=== PATIENT | female | born 1945 | race Caucasian/White ===

== ENCOUNTER 2016-09-24 07:10 | Inpatient (IN) | payer OTHER, MEDICARE ==
[~2016-09-24] VITALS: Ht 165.1 cm; Wt 71.7 kg
[~2016-09-24 07:10] MED LIST: ASPIRIN EC325 MG PO; ASPIRIN81 M4 PO; CEFUROXIME AXE500 MG PO; CITALOPRAM HBR10 MG PO; CRESTOR10 M1 PO; DIOVAN160 MG PO; METOPROLOL SUCC50 MG PO; MULTIVITAMIN1 TAB PO; NEURONTIN100 M1 PO; OMEPRAZOLE20 MG PO; PREDNISONE 20MG20 MG PO; PROAIR HFA0.09 MG/Ac INH; PULMICORT0.5 MG/21 INH/SOL; RISPERDAL3 M1 PO; TYLENOL XSTR500 MG PO; TYLENOL325 M1 PO; VENTOLIN HFA18 GM INH; WARFARIN SODIUM2 MG PO
--- NOTE | 2016-09-24 07:18 | ED AMS/SEIZURE/WEAK/DIZZY ---
History of Present Illness General Chief Complaint: Altered Mental Status Stated Complaint: ALTERED MENTAL STATUS Source: family, old records, EMS Exam Limitations: unable to give history Vital Signs & Intake/Output Vital Signs & Intake/Output Vital Signs Date Time Temp Pulse Resp B/P Pulse O2 O2 Flow FiO2 Ox Delivery Rate 09/24 1001 98.6 57 18 151/67 98 Room Air 09/24 0722 90 Room Air 09/24 0715 96.9 59 18 139/63 91 Room Air Allergies Coded Allergies: Penicillins (RASH 09/17/16) Reconcile Medications Albuterol Sulfate (Ventolin Hfa) 90 MCG HFA.AER.AD 1 PUF INH BID COPD ( Reported) Aspirin (Aspirin*) 81 MG TAB.CHEW 1 TAB PO DAILY HEART HEALTH Budesonide (Pulmicort Flexhaler) 180 MCG AER.POW.BA 2 PUF INH BID COPD ( Reported) Citalopram Hydrobromide (Citalopram HBr) 10 MG TABLET 20 MG PO DAILY MENTAL HEALTH (Reported) Gabapentin (Neurontin) 100 MG CAPSULE 1 CAP PO BID ANXIETY/NERVE PAIN ( Reported) Risperidone (Risperdal) 3 MG TABLET 1 TAB PO AT BEDTIME SLEEP AIDE (Reported) Rosuvastatin Calcium (Crestor) 10 MG TABLET 1 TAB PO DAILY CHOLESTEROL ( Reported) Valsartan (Diovan) 160 MG TABLET 1 TAB PO DAILY BLOOD PRESSURE (Reported) Triage Nurses Notes Reviewed? yes Onset: Gradual Duration: week(s): (3) Timing: recent history Injury Environment: home Severity: severe No Modifying Factors: none Associated Symptoms: LEFT SIDED CEA ON Aug HPI: This is a 70-year-old female who presents via EMS from home accompanied by her brother for chief complaint of altered mental status. He states that she had a carotid endarterectomy done on the left side on September 11 and since then she has not been acting herself. She had 2 hospitalizations in the last week once here on and 2 days later at [place]. CAT scan here showed initially some bleeding but that was read read by neurologist who thought it was an incorrect reading was sent home. He states at home she is unable to talk like she normally does. She is unable to use her arms that she normally does and that doesn't understand commands. He is worried that she is taking her medications and correctly. He states prior to the carotid endarterectomy she had a history of stroke but only had a very slight speech impediment. No trauma or fall. He states that she has not been left alone since this is happening. The repeat CAT scan that was done at [facility] 2 days later did not show any evidence of bleeding. Past History Travel History Traveled to [place] past 21 day No Medical History Any Pertinent Medical History? see below for history Neurological: TIA,CVA BLURRY VISION, LEFT SIDED WEAKNESS BASELINE APHASIA EENT: NONE Cardiovascular: HTN, HDL L CAROTID STENOSIS WITH ENDARTERECTOMY Respiratory: COPD, CHRONIC BRONCHITIS Psychiatric: SCHIZOPHRNIA Cancer(s): BREAST BIOPSY History of MRSA: No History of VRE: No History of CDIFF: No Surgical History Surgical History: non-contributory Psychosocial History Who do you live with Family Services at Home None What is your primary language Urdu Tobacco Use: Current Daily Use ETOH Use: denies use Family History Hx Contributory? No Review of Systems Review of Systems Constitutional: Denies: chills, fever. EENTM: Reports: no symptoms. Respiratory: Denies: cough. Cardiovascular: Denies: chest pain. GI: Denies: diarrhea, vomiting. Genitourinary: Reports: no symptoms. Musculoskeletal: Reports: no symptoms. Skin: Reports: no symptoms. Neurological/Psychological: Reports: ataxia, confusion. Hematologic/Endocrine: Denies: bruising, bleeding. Immunologic/Allergic: Denies: splenectomy. All Other Systems: Reviewed and Negative Physical Exam Physical Exam General Appearance: well developed/nourished, alert, awake, anxious, mild distress Head: atraumatic, normal appearance Eyes: Bilateral: normal appearance, PERRL, EOMI. Neck: HEALING LEFT CEA SCAR Respiratory: normal breath sounds, chest non-tender, no respiratory distress Cardiovascular: regular rate/rhythm, normal peripheral pulses Peripheral Pulses: 2+ radial (R), 2+ radial (L) Gastrointestinal: normal bowel sounds, soft, non-tender Back: normal inspection Extremities: normal range of motion Neurologic/Psych: awake, alert Skin: intact, normal color, warm/dry Core Measures ACS in differential dx? No CVA/TIA Diagnosis: Yes NIH Stroke Scale: Total 3 Date Last Known Well: 09/02/16 Neurological S/S of CVA: Acute Confusion, Difficulty Speaking, Doesn't Walk, Slurred Speech Severe Sepsis Present: No Septic Shock Present: No Bedside Dysphagia Screen Bedside Swallow Eval Done: Yes Result of Evaluation: Pass Progress Differential Diagnosis: CVA/stroke, encephalitis, intracranial Hem., intracranial mass/tumor, seizure disorder, subarachnoid Hem. Plan of Care: Orders Procedure Date/time Status Admit to inpatient 09/24 947 Active Vital Signs 09/24 947 Active Code Status 09/24 947 Active Add-on Test (ER Only) 09/24 841 Active CULTURE,URINE 09/24 807 Active URINALYSIS 09/24 717 Complete TROPONIN LEVEL 09/24 717 Complete PARTIAL THROMBOPLASTIN TIME 09/24 717 Complete PROTHROMBIN TIME 09/24 717 Complete AMMONIA 09/24 717 Complete COMPREHENSIVE METABOLIC PANEL 09/24 717 Complete CBC WITHOUT DIFFERENTIAL 09/24 717 Complete EKG 09/24 717 Active Laboratory Tests 09/24/1610: PT 10.9, INR 1.04, APTT 29 09/24/16807: Urinalysis LIGHT H, Urine Color YEL, Urine Clarity HAZY H, Urine pH 6.0, Ur Specific [place] 1.020, Urine Protein NEG, Urine Ketones NEG, Urine Nitrite NEG, Urine Bilirubin NEG, Urine Urobilinogen 0.2, Ur Leukocyte Esterase SMALL H, Ur Microscopic SEDIMENT EXAMINED, Urine RBC RARE, Urine WBC 25-50 H, Ur Epithelial Cells MOD H, Urine Hemoglobin NEG, Urine Glucose NEG 09/24/16 0724: Anion Gap 9, Estimated GFR 34 L, BUN/Creatinine Ratio 14.0, Glucose 93, Calcium 9.7, Total Bilirubin 0.5, AST 19, ALT 25, Alkaline Phosphatase 60, Ammonia < 9 L, Troponin I < 0.01, Total Protein 6.7, Albumin 3.8, Globulin 2.9, Albumin/ Globulin Ratio 1.3, CBC w Diff NO MAN DIFF REQ, RBC 4.31, MCV 92.5, MCH 31.8 H, RDW 15.3 H, MPV 8.7, Gran % 65.5, Lymphocytes % 25.4, Monocytes % 7.1, Eosinophils % 1.6, Basophils % 0.4, Absolute Granulocytes 4.7, Absolute Lymphocytes 1.8, Absolute Monocytes 0.5, Absolute Eosinophils 0.1, Absolute Basophils 0, PUBS MCHC 34.4 Microbiology 09/24 807 URINE ROUT: Urine Culture - RECD EKG, TELE MONITOR, HEAD CT. LABS, COAGS ORDERED. (JENNY MOORE,NAE) Diagnostic Imaging: Viewed by Me: Radiology Read, CT Scan. Discussed w/RAD: Radiology Read, CT Scan. Radiology Impression: EXAM TYPE: CAT - CT HEAD WO IV CONTRAST EXAMINATION: CT HEAD WITHOUT CONTRAST CLINICAL INFORMATION: Acute mental status and confusion. Post recent infarct August 2016 COMPARISON: Previous head CT scans most recent 09/17/2016 TECHNIQUE: Contiguous axial imaging was performed from the skull base to vertex without intravenous administration of contrast. DLP: 529 mGy-cm. FINDINGS: There is no evidence of an extra-axial collection. There is no evidence of intra or extra-axial hemorrhage. There is an old large left frontal or MCA territory infarct. This is similar to previous exam. There is new decreased attenuation seen in the left posterior parietal lobe questionable for new infarct. This is best appreciated axial image 30-35 series 2 and measures 2 cm. The ventricles and extra-axial CSF spaces are appropriate. No mass or mass effect is seen. Review at bone windows is unremarkable. IMPRESSION: Large old left frontal infarct similar to previous exams. Question new left posterior parietal infarct. CXR Impression: EXAM TYPE: RAD - XRY-PORTABLE CHEST XRAY EXAMINATION: XR PORTABLE CHEST CLINICAL INFORMATION: Cough. Hypoxia. COMPARISON: Previous chest x-ray most recent August [address] March 2015 TECHNIQUE: AP portable chest FINDINGS: The cardiac and mediastinal contours are stable. The lungs are clear. There is no pleural effusion or pneumothorax. Visualized bony structures are unremarkable. IMPRESSION: No evidence for acute disease in the chest. Initial ED EKG: NSR Rhythm Strip: normal sinus rhythm Departure Departure Time of Disposition: 1044 Disposition: STILL A PATIENT Condition: Stable Clinical Impression Primary Impression: Altered mental status Referrals: GABRIELA CAMARILLO DO (PCP/Family) Referred to [facility] as new patient No Departure Forms: Customer Survey General Discharge Information Admission Note Spoke With: TERENCE CARTER M.D Documentation of Exam: Documentation of any treatments & extenuating circumstances including Concerns Regarding Discharge (functional status, medication knowledge or non-compliance, living conditions, etc.) that warrant an admission rather than observation: [ TELE MONITOR, NEURO CONSULT, NEURO CHECKS, MRI BRAIN,CAROTID U/S]
[2016-09-24 07:50] LABS: ABSOLUTE BASOPHIL COUNT 0 /CUMM (0.0-0.2); ABSOLUTE EOSINOPHIL COUNT 0.1 /CUMM (0.0-0.7); ABSOLUTE GRANULOCYTE CT 4.7 /CUMM (1.4-6.5); ABSOLUTE LYMPH COUNT 1.8 /CUMM (1.2-3.4); ABSOLUTE MONOCYTE COUNT 0.5 /CUMM (0.10-0.60); BASOPHIL % 0.4 % (0.0-2.0); EOSINOPHIL % 1.6 % (0-5); GRANULOCYTE % 65.5 % (42.2-75.2); HEMATOCRIT 39.9 % (37-47); MEAN CORPUSCULAR HGB 31.8 PG (27.0-31.0); MEAN CORPUSCULAR HGB CONC 34.4 G/DL (33.0-37.0); MEAN CORPUSCULAR VOLUME 92.5 FL (81.0-99.0); MEAN PLATELET VOLUME 8.7 FL (7.4-10.4); PLATELET COUNT 188 /CUMM (130-400); RBC DISTRIBUTION WIDTH 15.3 % (11.5-14.5); RED BLOOD CELL CT 4.31 /CUMM (4.20-5.40); WHITE BLOOD CELL COUNT 7.1 /CUMM (4.8-10.8)
--- NOTE | 2016-09-24 08:11 | RADIOLOGY REPORT ---
EXAMINATION: XR PORTABLE CHEST CLINICAL INFORMATION: Cough. Hypoxia. COMPARISON: Previous chest x-ray most recent August [address] March 2015 TECHNIQUE: AP portable chest FINDINGS: The cardiac and mediastinal contours are stable. The lungs are clear. There is no pleural effusion or pneumothorax. Visualized bony structures are unremarkable. IMPRESSION: No evidence for acute disease in the chest.
[2016-09-24 08:39] LABS: PT 10.9 SEC (9.4-12.5); PTT 29 SEC (25-37)
--- NOTE | 2016-09-24 08:50 | CT SCAN REPORT ---
EXAMINATION: CT HEAD WITHOUT CONTRAST CLINICAL INFORMATION: Acute mental status and confusion. Post recent infarct August 2016 COMPARISON: Previous head CT scans most recent 09/17/2016 TECHNIQUE: Contiguous axial imaging was performed from the skull base to vertex without intravenous administration of contrast. DLP: 529 mGy-cm. FINDINGS: There is no evidence of an extra-axial collection. There is no evidence of intra or extra-axial hemorrhage. There is an old large left frontal or MCA territory infarct. This is similar to previous exam. There is new decreased attenuation seen in the left posterior parietal lobe questionable for new infarct. This is best appreciated axial image 30-35 series 2 and measures 2 cm. The ventricles and extra-axial CSF spaces are appropriate. No mass or mass effect is seen. Review at bone windows is unremarkable. IMPRESSION: Large old left frontal infarct similar to previous exams. Question new left posterior parietal infarct.
--- NOTE | 2016-09-24 11:00 | History & Physical ---
See Addendum BROOK MOORE,RICARDA 09/24/16 1100: General Information and HPI History of Present Illness: Ana is a 71-year-old woman with medical history of TIA and left MCA territorial infarct with resultant right-sided weakness and aphasia, critical stenosis of left internal carotid artery status post left carotid endarterectomy with Hemashield patch angioplasty performed on 09/11/2016, hypertension dyslipidemia COPD and chronic bronchitis, schizophrenia. The patient was seen in the emergency room on 09/17/2016, approximately one week after endarterectomy with complaints of severe left-sided headache, a CAT scan of the head revealed a new trace left supratentorial subarachnoid hemorrhage without mass effect or midline shift and the old left MCA territory infarction. Dexter Bennett MD discussed the case with Dr. Andrew Steiner of the neurosurgical service at the time who didn't feel that the pattern of potential bleeding was consistent with aneurysmal bleed and there is no subarachnoid hemorrhage and at the patient was stable for discharge. Her headache improved with intravenous ketorolac. However, over the course of the next couple of days the patient continued to experience headaches and was reevaluated at [facility] where workup was repeated and again negative and she was discharged subsequently with pain medications. This morning her noticed that she was experiencing labored breathing, and woke her up. The patient endorsed dyspnea and recurrent headache at around 6 AM this morning was very incoherent, much more than baseline not oriented to self. The family feels that there has been a decline in her cognitive capacity since the surgery. At baseline she is pretty independent with activities daily living and walks independently. On further review, she admits to feeling short of breath but denies fevers chills chest pain nausea vomiting diarrhea dysuria frequency or any other symptoms after review in detail. In the emergency department, CAT scan of the head revealed a large old left frontal infarction, and suspicion of new left posterior parietal infarction. Allergies/Medications Allergies: Coded Allergies: Penicillins (RASH 09/17/16) Home Med list Albuterol Sulfate (Ventolin Hfa) 90 MCG HFA.AER.AD 1 PUF INH BID COPD ( Reported) Aspirin (Aspirin*) 81 MG TAB.CHEW 1 TAB PO DAILY HEART HEALTH Budesonide (Pulmicort Flexhaler) 180 MCG AER.POW.BA 2 PUF INH BID COPD ( Reported) Citalopram Hydrobromide (Citalopram HBr) 10 MG TABLET 20 MG PO DAILY MENTAL HEALTH (Reported) Gabapentin (Neurontin) 100 MG CAPSULE 1 CAP PO BID ANXIETY/NERVE PAIN ( Reported) Risperidone (Risperdal) 3 MG TABLET 1 TAB PO AT BEDTIME SLEEP AIDE (Reported) Rosuvastatin Calcium (Crestor) 10 MG TABLET 1 TAB PO DAILY CHOLESTEROL ( Reported) Valsartan (Diovan) 160 MG TABLET 1 TAB PO DAILY BLOOD PRESSURE (Reported) Past History Travel History Traveled to [place] past 21 day No Medical History Neurological: TIA,CVA BLURRY VISION, LEFT SIDED WEAKNESS BASELINE APHASIA EENT: NONE Cardiovascular: HTN, HDL L CAROTID STENOSIS WITH ENDARTERECTOMY Respiratory: COPD, CHRONIC BRONCHITIS Gastrointestinal: NONE Hepatic: NONE Renal: NONE Musculoskeletal: NONE Psychiatric: SCHIZOPHRNIA Endocrine: NONE Blood Disorders: NONE Cancer(s): BREAST BIOPSY [employer]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 Exam & Diagnostic Data Last 24 Hrs of Vital Signs/I&O Vital Signs Date Time Temp Pulse Resp B/P Pulse O2 O2 Flow FiO2 Ox Delivery Rate 09/24 1001 98.6 57 18 151/67 98 Room Air 09/24 0722 90 Room Air 09/24 0715 96.9 59 18 139/63 91 Room Air Intake & Output 09/24 1600 09/24 0800 09/24 0000 Intake Total Output Total Balance Patient 158 lb Weight Physical Exam General Appearance Alert, Oriented X3, Cooperative, No Acute Distress Skin No Rashes, No Breakdown, No Significant Lesion HEENT Atraumatic, PUPILS ARE SMALL BUT REACTIVE, R.PUPIL IS IRREGUALRLY SHAPED, LAZY EYE CHILD Neck Supple, No JVD, No thryomegaly, +2 Carotid Pulse wo Bruit, No LAD Lymphatic Cervical nl Cardiovascular Regular Rate, Normal S1, Normal S2, No Murmurs, Gallops, Rubs Lungs Clear to Auscultation, Normal Air Movement Abdomen Normal Bowel Sounds, Soft, No Tenderness, No Hepatospenomegaly, No Masses Neurological Normal Speech, Normal Tone, Sensation Intact, Cranial Nerves 3-12 NL, Reflexes 2+, STRENGTH 4/5 X 4 EXT, APHASIC, EQUIVOCAL BABINSKI, LIMITED EXAM BC OF PAIN FROM NEUROPATHY Extremities No Clubbing, No Cyanosis, No Edema, Normal Pulses, No Tenderness/ Swelling Vascular Normal Pulses Last 24 Hrs of Labs/Omero: Laboratory Tests 09/24/16 0810: PT 10.9, INR 1.04, APTT 29 09/24/16 0808: Urinalysis LIGHT H, Urine Color YEL, Urine Clarity HAZY H, Urine pH 6.0, Ur Specific [place] 1.020, Urine Protein NEG, Urine Ketones NEG, Urine Nitrite NEG, Urine Bilirubin NEG, Urine Urobilinogen 0.2, Ur Leukocyte Esterase SMALL H, Ur Microscopic SEDIMENT EXAMINED, Urine RBC RARE, Urine WBC 25-50 H, Ur Epithelial Cells MOD H, Urine Hemoglobin NEG, Urine Glucose NEG 09/24/16 0724: Anion Gap 9, Estimated GFR 34 L, BUN/Creatinine Ratio 14.0, Glucose 93, Calcium 9.7, Total Bilirubin 0.5, AST 19, ALT 25, Alkaline Phosphatase 60, Ammonia < 9 L, Troponin I < 0.01, Total Protein 6.7, Albumin 3.8, Globulin 2.9, Albumin/ Globulin Ratio 1.3, CBC w Diff NO MAN DIFF REQ, RBC 4.31, MCV 92.5, MCH 31.8 H, RDW 15.3 H, MPV 8.7, Gran % 65.5, Lymphocytes % 25.4, Monocytes % 7.1, Eosinophils % 1.6, Basophils % 0.4, Absolute Granulocytes 4.7, Absolute Lymphocytes 1.8, Absolute Monocytes 0.5, Absolute Eosinophils 0.1, Absolute Basophils 0, PUBS MCHC 34.4 Microbiology 09/24 807 URINE ROUT: Urine Culture - RECD Diagnostic Data EKG Results Sinus tachycardia with rate of 110, prolonged QTC of 590 CXR Results Clear Assessment/Plan Assessment: Ana is a 71-year-old woman with medical history of TIA and left MCA territorial infarct with resultant right-sided weakness and aphasia, critical stenosis of left internal carotid artery status post left carotid endarterectomy with Hemashield patch angioplasty performed on 09/11/2016, hypertension dyslipidemia COPD and chronic bronchitis, schizophrenia. This patient clearly has a new finding on CAT scan imaging, in the setting of altered mental status and recent endarterectomy for critical left ICA stenosis. Initially she was evaluated in the emergency department a few days ago for headache and CAT scan that time did show a subarachnoid hemorrhage without mass effect or midline shift. She is presently admitted, for a new CVA in the left posterior parietal area. In the emergency department she got a full dose of aspirin. She did pass a bedside swallow evaluation. She will be admitted to the telemetry floor, evaluated by neurology. - Problems - Acute left posterior parietal cerebrovascular accident Prolonged QTc interval Carotid artery disease status post left and carotid artery endarterectomy Dyslipidemia COPD Schizophrenia - Plan - Continuous cardiac monitoring on telemetry MRI brain when possible Frequent neuro checks every 2 hours GCS every 4 hours Check lipid panel, hemoglobin A1c Obtain carotid ultrasound, echocardiogram Obtain serial enzymes and EKG At 1 PM and 7 PM Await neurology and vascular surgery evaluation Avoid QT prolonging medications Continue statin Continue inhalers Continue risperidone DVT prophylaxis without Full code As Ranked By This Provider Problem List: 1. Altered mental status 2. Carotid stenosis 3. Headache Core Measures/Miscellaneous Acute Coronary Syndrome ACS Diagnosis: No Cerebrovascular Accident CVA/TIA Diagnosis: Yes Congestive Heart Failure CHF Diagnosis: No Venous Thromboembolism VTE Risk Factors: Age > 40 VTE Prophylaxis Ordered Inpt: Mechanical (ALPS/TEDS) No Mech VTE prophylaxis d/t: No contraindications No VTE Pharm Prophylaxis d/t: No contraindications VTE Diagnosis: No VTE Type: NONE VTE Confirmed by (Test): NONE Severe Sepsis Severe Sepsis Present: No Septic Shock Septic Shock Present: No Miscellaneous Documentation Attending Case Discussed With: EMERALD MOORE,ROQUE Coleman Primary Care Physician: GABRIELA CAMARILLO DO Patient sees these Specialists na Level of Patient Care: Telemetry TERENCE CARTER MD 09/24/16 1404: Attending Review Statement Attending Statement Attending MD Statement: examined this patient, discuss w/resident/PA/FUR VAULT ATTENDANT, agreed w/resident/PA/FUR VAULT ATTENDANT, reviewed EMR data (avail), discussed with nursing, discussed with case mgmt, amended to note Attending Assessment/Plan: Patient seen and examined. I did have an extensive conversation with her sister the bedside. Sister reports that patient had right knee show left hemispheric stroke about 12 years ago. She has had any dysphagia weakness since then. With physical therapy functional status has improved and she is able to live independently with her brother. She ambulates without assisted device. She tolerates a regular diet without difficulty swallowing. She is able to communicate in an understandable manner although her speech does remain slurred. At the time of the stroke 12 years ago she was noted to have left internal carotid artery stenosis. She was offered surgery at that time but declined. She has been following up with the vascular surgery service. A few weeks ago she developed headache and transient loss of vision leading to reevaluation of her ICA stenosis at which point it was noted to be critically stenosed. Surgery was again offered and at this time patient agreed. She underwent surgical repair as documented above. Postprocedure the patient's sister is of the impression that her brother whom she reports has some underlying psychiatric condition has been overtly concerned about the patient leading to the different ER visits documented above. He reports that today he woke up from sleep because he was concerned about her breathing. On waking up he encouraged her to take her tramadol which was prescribed for headaches. She appeared confused to him and she spilled the medication bottles with he gave to her at which point she was brought to the ER for evaluation. When I violated the patient and found her alert and oriented 3. Rule out speech is slurred. He is easily understood. Her only complaint is a mildly productive cough which the sister reports is chronic and due to her underlying COPD. She denies any chest pain or shortness of breath. She denies any dysphagia or odynophagia. Sister does admit that she snores heavily at night. Gen. appearance: Well-developed, not in acute distress HEENT: Mild left facial droop Neck: No carotid bruit bilaterally. Steri-Strip over incision on the left side of the neck. Heart: S1-S2 regular Lungs: Good entry bilaterally, clear to auscultation Abdomen: Soft, nontender with normal bowel sounds Extremities: No pedal edema Neurologic: She does have a mild left facial droop . Extraocular muscles intact. No pronator drift. Power is follow-up 5 all extremities. Sensation is grossly intact. Problems: 1. Labored breathing; sister reports this was while asleep. Patient denies any respiratory symptoms at present. 2. Probable new left posterior parietal infarct noted on CT scan. 3. History of stroke with baseline slurred speech. 4. Carotid artery stenosis status post left carotid endarterectomy. 5. Hypertension 6. Chronic kidney disease stage III 7. Non oxygen-dependent COPD. Plan: -If CT finding is indeed a stroke, differentials would include thromboembolic event from surgery versus cardioembolic event from atrial fibrillation. -Admit to the telemetry service for cardiac monitoring. Obtain echocardiogram. -Neuro watch every 4 hours. -Notify neurosurgery service of patient's admission. -Continue antiplatelet therapy with aspirin. Continue statin therapy but increase dose. Check fasting lipid panel. -Recommend MRI of the brain to clarify T scan findings. Follow-up with the neurology service and vascular service about also obtaining MRA of the head and neck to further delineate the vasculature unless obtained previously. -Continue her routine home antihypertensive regimen. Would avoid overtly aggressive blood pressure control. -Her chronic kidney disease appears close to baseline. Repeat serum chemistry tomorrow. -Continue her home bronchodilator regimen. -DVT prophylaxis with subcutaneous heparin.
[2016-09-24] MEDS ORDERED: PULMICORT FLE180 MC1 INH (11:47)
[2016-09-24 12:19] VITALS: BP 170/74
--- NOTE | 2016-09-24 14:05 | Admission Certification ---
Admission Certification Certification Statement - As attending physician, I certify that at the time of - admission, based on clinical presentation, severity of - symptoms, need for further diagnostic testing and - therapeutic interventions, and risk of adverse outcomes - without in-hospital treatment, in my clinical assessment, - this patient requires an acute hospital stay for a minimum - of two nights or longer. I have also considered psychsocial - factors such as support system, advanced age, financial - issues, cognitive issues, and failed out-patient treatments, - past re-admission history, safety of patient, and lack of - compliance as applicable. Specific rationale supporting this admission is: Further evaluation of acute or chronic stroke.
[2016-09-24 15:30] VITALS: BP 148/60
[2016-09-25 00:30] VITALS: BP 140/80
[2016-09-25 07:46] LABS: ABSOLUTE BASOPHIL COUNT 0 /CUMM (0.0-0.2); ABSOLUTE EOSINOPHIL COUNT 0.1 /CUMM (0.0-0.7); ABSOLUTE GRANULOCYTE CT 3.7 /CUMM (1.4-6.5); ABSOLUTE LYMPH COUNT 1.5 /CUMM (1.2-3.4); ABSOLUTE MONOCYTE COUNT 0.5 /CUMM (0.10-0.60); BASOPHIL % 0.5 % (0.0-2.0); EOSINOPHIL % 1.5 % (0-5); GRANULOCYTE % 64.2 % (42.2-75.2); HEMATOCRIT 38.1 % (37-47); MEAN CORPUSCULAR HGB 31.7 PG (27.0-31.0); MEAN CORPUSCULAR HGB CONC 34.3 G/DL (33.0-37.0); MEAN CORPUSCULAR VOLUME 92.5 FL (81.0-99.0); MEAN PLATELET VOLUME 8.1 FL (7.4-10.4); PLATELET COUNT 179 /CUMM (130-400); RBC DISTRIBUTION WIDTH 15.2 % (11.5-14.5); RED BLOOD CELL CT 4.12 /CUMM (4.20-5.40); WHITE BLOOD CELL COUNT 5.8 /CUMM (4.8-10.8)
[2016-09-25 08:29] VITALS: BP 158/67
--- NOTE | 2016-09-25 09:14 | PN- Housestaff ---
SEBASTIAN LEY 09/25/16 0914: Subjective Follow-up For: Acute left posterior periatrial cerebrovascular accident Tele-Events Since Last Visit: Sinus bradycardia, rate 42-50, [place] interval 0.18 Subjective: Patient seen and examined. Offers no complaints, denies chest pain, shortness of breath, headache, nausea, vomiting, abdominal pain. Review of Systems Constitutional: Denies: see HPI. Objective Last 24 Hrs of Vital Signs/I&O Vital Signs Date Time Temp Pulse Resp B/P Pulse O2 O2 Flow FiO2 Ox Delivery Rate 09/25 1549 97.9 50 17 156/70 96 Room Air 09/25 0829 97.6 57 20 158/67 98 Nasal 2.0L Cannula 09/25 0030 98.1 54 20 140/80 92 Nasal 2.0L Cannula 09/25 0000 95 Nasal 2.0L Cannula Intake & Output 09/25 1600 09/25 0800 09/25 0000 Intake Total 222 024 7609 Output Total 9126 854 8743 Balance -40 -100 -10 Intake, IV 400 400 Intake, Oral 960 100 840 Number 0 Bowel Movements Output, Urine 1073 956 3419 Physical Exam General Appearance: Alert, Cooperative, No Acute Distress Skin: No Rashes, No Breakdown, No Significant Lesion HEENT: Atraumatic, PERRLA, EOMI, Mucous Membr. moist/pink Neck: Supple, No JVD, No thryomegaly, +2 Carotid Pulse wo Bruit, No LAD, Steri- strips on Left side of neck intact Lymphatic: Axillary nl, Cervical nl Cardiovascular: Regular Rate, Normal S1, Normal S2, No Murmurs Lungs: Clear to Auscultation, Normal Air Movement Abdomen: Normal Bowel Sounds, Soft, No Tenderness, No Hepatospenomegaly, No Masses Neurological: Normal Tone, Sensation Intact, Cranial Nerves 3-12 NL, Reflexes 2+ , slow/slurred speech, strength 4/5 in all 4 extremities Extremities: No Clubbing, No Cyanosis, No Edema, Normal Pulses, No Tenderness/ Swelling Vascular: Pulses Symmetrical Current Medications: Current Medications Sig/Dalia Start time Last Medication Dose Route Stop Time Status Admin Acetaminophen 650 MG Q4P PRN 09/25 0900 AC 09/25 PO 1948 Acetaminophen 1,000 MG Q6P PRN 09/24 1115 DC 09/24 IV 1903 Albuterol Sulfate 1 PUF BID 09/24 2200 AC 09/25 INH 2101 Aspirin 81 MG DAILY 09/25 1000 AC 09/25 PO 0906 Atorvastatin Calcium 40 MG 1700 09/24 1700 AC 09/25 PO 1628 Budesonide/ 2 PUF BID 09/24 2200 AC 09/25 Formoterol Fumarate INH 2100 Citalopram 20 MG DAILY 09/24 1145 AC 09/25 Hydrobromide PO 0906 Dextrose/Sodium 1,000 ML Q20H 09/24 1115 AC 09/25 Chloride IV 1029 Diphenhydramine HCl 25 MG Q6P PRN 09/24 1115 AC IV Docusate Sodium 100 MG DAILY 09/25 1632 AC 09/25 PO 1948 Gabapentin 100 MG BID 09/24 1145 AC 09/25 PO 2101 Hydromorphone HCl 0.5 MG Q4P PRN 09/24 1115 AC 09/24 IV 2112 Nicotine 14 MG DAILY 09/24 1226 AC 09/25 TOP 0906 Risperidone 3 MG AT BEDTIME 09/24 2200 AC 09/25 PO 2101 Senna/Docusate Sodium 1 TAB BID 09/25 2200 AC 09/25 PO 1948 Trimethobenzamide HCl 200 MG TID PRN 09/24 1215 AC IM Last 24 Hrs of Lab/Omero Results Last 24 Hrs of Labs/Mics: Laboratory Tests 09/25/16 0635: Anion Gap 6, Estimated GFR 44 L, BUN/Creatinine Ratio 15.8, Magnesium 2.3, CBC w Diff NO MAN DIFF REQ, RBC 4.12 L, MCV 92.5, MCH 31.7 H, RDW 15.2 H, MPV 8.1 , Gran % 64.2, Lymphocytes % 25.6, Monocytes % 8.2, Eosinophils % 1.5, Basophils % 0.5, Absolute Granulocytes 3.7, Absolute Lymphocytes 1.5, Absolute Monocytes 0.5, Absolute Eosinophils 0.1, Absolute Basophils 0, PUBS MCHC 34.3 Assessment/Plan Assessment: This is a a 71-year-old 78 with medical history thickened for TIA and 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 Problem list/plan: #Acute left posterior periatrial cerebrovascular accident: * The patient has residual slurred speech and weakness from previous CVAs. * Continue telemetry * Neurology recommendations; especially regarding obtaining MRA of head and neck versus CT CTA * MRI of brain * Continue with aspirin, statin * Echocardiogram * CT angiogram was recommended by neurosurgery however deferred given renal insufficiency. * Formal swallow evaluation pending * Continue with PT/OT/speech therapy #Bradycardia * Patient noted to be bradycardic today heart rate ranging 42-50 * Asymptomatic * Not on any cee blocking agents * Continue with telemetry monitoring * Will appreciate cardiology recommendations #Chronic kidney disease stage III: * Creatinine improved from 1.5 to 1.2 * Avoid nephrotoxins * Monitor creatinine levels #History of COPD * TRC/nebulizers as needed #DVT prophylaxis * subcutaneous heparin #Full code Problem List: 1. Bradycardia 2. CVA (cerebral vascular accident) Pain Ratin Pain Location: NA Pain Goal: Remain pain free Pain Plan: When necessary Tylenol Tomorrow's Labs & Rationales: BEP to monitor electrolytes and creatinine levels TERENCE CARTER MD 09/25/16 1131: Attending MD Review Statement Attending Statement Attending MD Statement: examined this patient, discuss w/resident/PA/ASSOCIATE THEATRE PROFESSOR, agreed w/resident/PA/ASSOCIATE THEATRE PROFESSOR, reviewed EMR data (avail), discussed with nursing, amended to note Attending Assessment/Plan: Patient seen and examined. Lying comfortably in bed not in acute distress. No issues overnight reported by nursing staff. No events on telemetry other than occasional sinus bradycardia with heart rate as low as 42 while asleep. Heartrate improves while awake. She is saturating 94% on room air prognosis staff. She denies headache or dizziness. Denies nausea vomiting. Tolerating her meals. Continues to complain of chronic nonproductive cough. On examination she has no focal deficits other than her mild dysarthria Problems: 1. Labored breathing; sister reports this was while asleep. Patient denies any respiratory symptoms at present. 2. Probable new left posterior parietal infarct noted on CT scan. 3. History of stroke with baseline slurred speech. 4. Carotid artery stenosis status post left carotid endarterectomy. 5. Hypertension 6. Chronic kidney disease stage III 7. Non oxygen-dependent COPD. Plan: -Case was discussed with the neurosurgery service yesterday and CT angiogram was recommended. This was deferred due to her renal insufficiency. -Follow-up with the neurology service regarding obtaining an MRA head and neck as opposed to the CT angiogram due to lower nephrotoxicity. Patient will also benefit from MRI to further visualize questionable area of infarct noted on CT scan. -Mobilize patient as tolerated. -Sister was inquiring into discharge to a correction facility due to her current home situation. Please follow-up with the disability case manager. -Continue bronchodilator regimen.
[2016-09-25 15:49] VITALS: BP 156/70
--- NOTE | 2016-09-25 16:52 | Cons- Neurology ---
General Information and HPI Consulting Request Date of Consult: 09/25/16 Requested By: TERENCE CARTER M.D Reason for Consult: strokes Source of Information: patient, EMR, Dr Oviedo Exam Limitations: mild aphasia History of Present Illness: 71-year-old woman with a history of a left MCA territory ischemic stroke about 12 years ago with residual aphasia but fully ambulatory. She was reportedly found to have left internal carotid artery stenosis at that time but declined surgery. More recently the left ICA stenosis was found to have progressed, and she subsequently agreed to surgery. On 09/11/2016 she underwent left carotid endarterectomy with Hemashield patch angioplasty at [facility] by Dr. Pollo Snow. The family feels that there has been a decline in her cognitive capacity since the surgery. She has been having some difficulty managing her medications. She has had episodic headaches. In the emergency department, CAT scan of the head revealed a large old left frontal infarction, and suspicion of new left posterior parietal infarction. She was subsequently admitted. Currently when I ask her, she states that she feels "much better". She currently denies headache. Allergies/Medications Allergies: Coded Allergies: Penicillins (RASH 09/17/16) Home Med List: Albuterol Sulfate (Ventolin Hfa) 90 MCG HFA.AER.AD 1 PUF INH BID COPD ( Reported) Aspirin (Aspirin*) 81 MG TAB.CHEW 1 TAB PO DAILY HEART HEALTH Budesonide (Pulmicort Flexhaler) 180 MCG AER.POW.BA 2 PUF INH BID COPD ( Reported) Citalopram Hydrobromide (Citalopram HBr) 10 MG TABLET 20 MG PO DAILY MENTAL HEALTH (Reported) Gabapentin (Neurontin) 100 MG CAPSULE 1 CAP PO BID ANXIETY/NERVE PAIN ( Reported) Risperidone (Risperdal) 3 MG TABLET 1 TAB PO AT BEDTIME SLEEP AIDE (Reported) Rosuvastatin Calcium (Crestor) 10 MG TABLET 1 TAB PO DAILY CHOLESTEROL ( Reported) Valsartan (Diovan) 160 MG TABLET 1 TAB PO DAILY BLOOD PRESSURE (Reported) Current Medications: Current Medications Sig/Dalia Start time Last Medication Dose Route Stop Time Status Admin Acetaminophen 650 MG Q4P PRN 09/25 0900 AC 09/25 PO 1454 Acetaminophen 1,000 MG Q6P PRN 09/24 1115 DC 09/24 IV 1903 Albuterol Sulfate 1 PUF BID 09/24 2200 AC 09/25 INH 0911 Aspirin 81 MG DAILY 09/25 1000 AC 09/25 PO 0906 Atorvastatin Calcium 40 MG 1700 09/24 1700 AC 09/25 PO 1628 Budesonide/ 2 PUF BID 09/24 2200 AC 09/25 Formoterol Fumarate INH 0907 Citalopram 20 MG DAILY 09/24 1145 AC 09/25 Hydrobromide PO 0906 Dextrose/Sodium 1,000 ML Q20H 09/24 1115 AC 09/25 Chloride IV 1029 Diphenhydramine HCl 25 MG Q6P PRN 09/24 1115 AC IV Docusate Sodium 100 MG DAILY 09/25 1632 AC PO Gabapentin 100 MG BID 09/24 1145 AC 09/25 PO 0906 Hydromorphone HCl 0.5 MG Q4P PRN 09/24 1115 AC 09/24 IV 2112 Nicotine 14 MG DAILY 09/24 1226 AC 09/25 TOP 0906 Risperidone 3 MG AT BEDTIME 09/24 2200 AC 09/24 PO 2111 Senna/Docusate Sodium 1 TAB BID 09/25 2200 AC PO Trimethobenzamide HCl 200 MG TID PRN 09/24 1215 AC IM Review of Systems Review of Systems: REVIEW OF SYSTEMS: (-) = negative / normal blank = not discussed Neurologic: see HPI Eyes: (-) ENT: (-) Constitutional: (-) CV: (-) Respiratory: COPD /Renal: (-) Musculoskeletal: (-) Skin: (-) Psychiatric: See past medical history Heme: (-) GI: (-) Allergy/Immune: (-) Endocrine: (-) Other: (-) Past History Travel History Traveled to [place] past 21 day No Medical History Blood Transfusion Hx: No Neurological: TIA,CVA BLURRY VISION, LEFT SIDED WEAKNESS BASELINE APHASIA EENT: NONE Cardiovascular: HTN, HDL L CAROTID STENOSIS WITH ENDARTERECTOMY Respiratory: COPD, CHRONIC BRONCHITIS Gastrointestinal: NONE Hepatic: NONE Renal: NONE Musculoskeletal: NONE Psychiatric: SCHIZOPHRNIA Endocrine: NONE Blood Disorders: NONE 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 Home Services at Home: None Smoking Status: Current Some Day Smoker ETOH Use: denies use Exam & Diagnostic Data Vital Signs and I&O Vital Signs Date Time Temp Pulse Resp B/P Pulse O2 O2 Flow FiO2 Ox Delivery Rate 09/25 1549 97.9 50 17 156/70 96 Room Air 09/25 0829 97.6 57 20 158/67 98 Nasal 2.0L Cannula 09/25 0030 98.1 54 20 140/80 92 Nasal 2.0L Cannula 09/25 0000 95 Nasal 2.0L Cannula Intake & Output 09/25 1600 09/25 0800 09/25 0000 Intake Total 796 793 6943 Output Total 1252 884 6942 Balance -40 -100 -10 Intake, IV 400 400 Intake, Oral 960 100 840 Number 0 Bowel Movements Output, Urine 2743 720 9074 Physical Exam: PHYSICAL EXAMINATION: nl = normal NT or blank = not tested GENERAL Appearance: nl Head: nl Eyes: nl ENT: nl Neck: nl Carotids: Steri-Strips in place left anterior neck status post recent left carotid endarterectomy Lungs: nl Heart: nl Extremities: nl NEUROLOGIC MENTAL STATUS Level of consciousness: nl Orientation: Limited assessment due to a aphasia. Initially stated the current president is Chrissy, then corrected to Obama; oriented to place but stated the year was "1972" Attention / Concentration: nl Memory: Intact for current events. Was also able to recall the name of the surgeon who performed her recent carotid endarterectomy Fund of Knowledge: nl Speech / Language: Mild dysarthria, moderate verbal apraxia, good comprehension NEUROLOGIC CRANIAL NERVES I: Olfaction: NT II: Optic nerves: Poorly visualized; miosis Visual gann: Difficult to assess due to a aphasia related responses; apparent low vision right eye. No overt hemianopsia III: Pupils: Myotic, reactive Levator palpebrae: nl III, IV, : Ocular alignment: nl Extraocular motility: nl Pursuits/ saccades: nl V: Facial sensation: Mild right lower facial weakness Masseter/Pterygoids: nl VII: Facial Motor: nl VIII: Hearing (finger rub): nl IX, X: Uvula and palate: nl XI: SCM, Upper trap.: nl XII: Tongue: nl MOTOR / NEUROMUSCULAR Bulk: nl Tone: nl Strength: nl Rapid alternating movements: nl Fine motor movements: nl Abnormal / involuntary movements: none CEREBELLAR / COORDINATION: intact SENSATION: intact to lt touch DTR's symmetrically trace to absent PLANTARS: flexor left, extensor right GAIT: Not tested Last 48 Hours of Lab Results: Laboratory Tests 09/25 09/24 09/24 09/24 0635 1902 1300 0810 Chemistry Sodium (137 - 145 mmol/L) 142 Potassium (3.5 - 5.1 mmol/L) 4.7 Chloride (98 - 107 mmol/L) 111 H Carbon Dioxide (22 - 30 mmol/L) 25 Anion Gap (5 - 16) 6 BUN (7 - 17 mg/dL) 19 H Creatinine (0.5 - 1.0 mg/dL) 1.2 H Estimated GFR (>60 ml/min) 44 L BUN/Creatinine Ratio (7 - 25 %) 15.8 Magnesium (1.6 - 2.3 mg/dL) 2.3 Troponin I (< 0.11 ng/ml) < 0.01 < 0.01 Coagulation PT (9.4 - 12.5 SEC) 10.9 INR (0.90 - 1.19) 1.04 APTT (25 - 37 SEC) 29 Hematology CBC w Diff NO MAN DIFF REQ WBC (4.8 - 10.8 /CUMM) 5.8 RBC (4.20 - 5.40 /CUMM) 4.12 L Hgb (12.0 - 16.0 G/DL) 13.1 Hct (37 - 47 %) 38.1 MCV (81.0 - 99.0 FL) 92.5 MCH (27.0 - 31.0 PG) 31.7 H RDW (11.5 - 14.5 %) 15.2 H Plt Count (130 - 400 /CUMM) 179 MPV (7.4 - 10.4 FL) 8.1 Gran % (42.2 - 75.2 %) 64.2 Lymphocytes % (20.5 - 51.1 %) 25.6 Monocytes % (1.7 - 9.3 %) 8.2 Eosinophils % (0 - 5 %) 1.5 Basophils % (0.0 - 2.0 %) 0.5 Absolute Granulocytes (1.4 - 6.5 /CUMM) 3.7 Absolute Lymphocytes (1.2 - 3.4 /CUMM) 1.5 Absolute Monocytes (0.10 - 0.60 /CUMM) 0.5 Absolute Eosinophils (0.0 - 0.7 /CUMM) 0.1 Absolute Basophils (0.0 - 0.2 /CUMM) 0 PUBS MCHC (33.0 - 37.0 G/DL) 34.3 09/24 09/24 0808 0724 Chemistry Sodium (137 - 145 mmol/L) 139 Potassium (3.5 - 5.1 mmol/L) 4.5 Chloride (98 - 107 mmol/L) 106 Carbon Dioxide (22 - 30 mmol/L) 24 Anion Gap (5 - 16) 9 BUN (7 - 17 mg/dL) 21 H Creatinine (0.5 - 1.0 mg/dL) 1.5 H Estimated GFR (>60 ml/min) 34 L BUN/Creatinine Ratio (7 - 25 %) 14.0 Glucose (65 - 99 mg/dL) 93 Calcium (8.4 - 10.2 mg/dL) 9.7 Total Bilirubin (0.2 - 1.3 mg/dL) 0.5 AST (14 - 36 U/L) 19 ALT (9 - 52 U/L) 25 Alkaline Phosphatase (<127 U/L) 60 Ammonia (9 - 30 umol/L) < 9 L Troponin I (< 0.11 ng/ml) < 0.01 Total Protein (6.3 - 8.2 g/dL) 6.7 Albumin (3.5 - 5.0 g/dL) 3.8 Globulin (1.9 - 4.2 gm/dL) 2.9 Albumin/Globulin Ratio (1.1 - 2.2 %) 1.3 Triglycerides (<150 mg/dL) 269 H Cholesterol (<200 MG/DL) 138 LDL Cholesterol, Calc (65 - 129 mg/dL) 46 L HDL Cholesterol (40 - 60 mg/dL) 39 L Cholesterol/HDL Ratio (0.00 - 4.23 %) 4 Hematology CBC w Diff NO MAN DIFF REQ WBC (4.8 - 10.8 /CUMM) 7.1 RBC (4.20 - 5.40 /CUMM) 4.31 Hgb (12.0 - 16.0 G/DL) 13.7 Hct (37 - 47 %) 39.9 MCV (81.0 - 99.0 FL) 92.5 MCH (27.0 - 31.0 PG) 31.8 H RDW (11.5 - 14.5 %) 15.3 H Plt Count (130 - 400 /CUMM) 188 MPV (7.4 - 10.4 FL) 8.7 Gran % (42.2 - 75.2 %) 65.5 Lymphocytes % (20.5 - 51.1 %) 25.4 Monocytes % (1.7 - 9.3 %) 7.1 Eosinophils % (0 - 5 %) 1.6 Basophils % (0.0 - 2.0 %) 0.4 Absolute Granulocytes (1.4 - 6.5 /CUMM) 4.7 Absolute Lymphocytes (1.2 - 3.4 /CUMM) 1.8 Absolute Monocytes (0.10 - 0.60 /CUMM) 0.5 Absolute Eosinophils (0.0 - 0.7 /CUMM) 0.1 Absolute Basophils (0.0 - 0.2 /CUMM) 0 PUBS MCHC (33.0 - 37.0 G/DL) 34.4 Urines Urinalysis LIGHT H Urine Color (YEL,AMB,STR) YEL Urine Clarity (CLEAR) HAZY H Urine pH (5.0 - 8.0) 6.0 Ur Specific [place] (1.001 - 1.035) 1.020 Urine Protein (NEG,<30 MG/DL) NEG Urine Ketones (NEG) NEG Urine Nitrite (NEG) NEG Urine Bilirubin (NEG) NEG Urine Urobilinogen (0.1 - 1.0 EU/dl) 0.2 Ur Leukocyte Esterase (NEG) SMALL H Ur Microscopic SEDIMENT EXAMINED Urine RBC (0 - 5 /HPF) RARE Urine WBC (0 - 2 /HPF) 25-50 H Ur Epithelial Cells (NONE,FEW) MOD H Urine Hemoglobin (NEG) NEG Urine Glucose (N MG/DL) NEG 09/24 0718 Chemistry Hemoglobin A1c Pending Imaging/Other Studies: Head CT 09-24-15 IMPRESSION: Large old left frontal infarct similar to previous exams. Question new left posterior parietal infarct. Echocardiogram and carotid Doppler ultrasound pending Assessment/Plan Assessment: Old L MCA infarct Possible new L post parietal infarct Recent L CEA Recommendations: Repeat carotid ultrasound and echocardiogram Brain MRI Switch from aspirin to Plavix for secondary stroke prevention (unless indication for anticoagulation is revealed on telemetry or echocardiogram) Continue statin Provide stroke education materials STR after workup complete Consult Acknowledgment - Thank you for your consult request.
--- NOTE | 2016-09-25 20:07 | Cons- Cardiology ---
General Information and HPI Consulting Request Date of Consult: 09/25/16 Requested By: TERENCE CARTER M.D Reason for Consult: Possible CVA History of Present Illness: The patient is a 71-year-old female with history of TIA and left MCA infarct with resulting right-sided weakness and aphasia. She is status post left carotid endarterectomy 2 weeks ago. She was seen in the emergency department on September 17 with complaint of severe left-sided headache. CT scan of the head revealed new trace subarachnoid hemorrhage. She was discharged to home, and she continued to experience headaches. She was evaluated at [facility] where workup was negative. On the morning of presentation to [place], her noticed that she was experiencing labored breathing. She complained of recurrent headache and dyspnea. Her family feels that her cognitive capacity has declined since the surgery. She complains of shortness of breath. No fever. No chills. No chest pain. No nausea. No vomiting. No diaphoresis. Allergies/Medications Allergies: Coded Allergies: Penicillins (RASH 09/17/16) Home Med List: Albuterol Sulfate (Ventolin Hfa) 90 MCG HFA.AER.AD 1 PUF INH BID COPD ( Reported) Aspirin (Aspirin*) 81 MG TAB.CHEW 1 TAB PO DAILY HEART HEALTH Budesonide (Pulmicort Flexhaler) 180 MCG AER.POW.BA 2 PUF INH BID COPD ( Reported) Citalopram Hydrobromide (Citalopram HBr) 10 MG TABLET 20 MG PO DAILY MENTAL HEALTH (Reported) Gabapentin (Neurontin) 100 MG CAPSULE 1 CAP PO BID ANXIETY/NERVE PAIN ( Reported) Risperidone (Risperdal) 3 MG TABLET 1 TAB PO AT BEDTIME SLEEP AIDE (Reported) Rosuvastatin Calcium (Crestor) 10 MG TABLET 1 TAB PO DAILY CHOLESTEROL ( Reported) Valsartan (Diovan) 160 MG TABLET 1 TAB PO DAILY BLOOD PRESSURE (Reported) Current Medications: Current Medications Sig/Dalia Start time Last Medication Dose Route Stop Time Status Admin Acetaminophen 650 MG Q4P PRN 09/25 0900 AC 09/25 PO 1948 Acetaminophen 1,000 MG Q6P PRN 09/24 1115 DC 09/24 IV 1903 Albuterol Sulfate 1 PUF BID 09/24 2200 AC 09/25 INH 2101 Aspirin 81 MG DAILY 09/25 1000 AC 09/25 PO 0906 Atorvastatin Calcium 40 MG 1700 09/24 1700 AC 09/25 PO 1628 Budesonide/ 2 PUF BID 09/24 2200 AC 09/25 Formoterol Fumarate INH 2100 Citalopram 20 MG DAILY 09/24 1145 AC 09/25 Hydrobromide PO 0906 Dextrose/Sodium 1,000 ML Q20H 09/24 1115 AC 09/25 Chloride IV 1029 Diphenhydramine HCl 25 MG Q6P PRN 09/24 1115 AC IV Docusate Sodium 100 MG DAILY 09/25 1632 AC 09/25 PO 1948 Gabapentin 100 MG BID 09/24 1145 AC 09/25 PO 2101 Heparin Sodium 5,000 UNIT Q8 09/25 2234 AC 09/25 (Porcine) SC 2258 Hydromorphone HCl 0.5 MG Q4P PRN 09/24 1115 AC 09/24 IV 2112 Nicotine 14 MG DAILY 09/24 1226 AC 09/25 TOP 0906 Risperidone 3 MG AT BEDTIME 09/24 2200 AC 09/25 PO 2101 Senna/Docusate Sodium 1 TAB BID 09/25 2200 AC 09/25 PO 1948 Trimethobenzamide HCl 200 MG TID PRN 09/24 1215 AC IM Review of Systems Review of Systems: Review of systems: No rash. No tremor. No melena.All other systems are reviewed and are noted to be negative. Past History Travel History Traveled to [place] past 21 day No Medical History Blood Transfusion Hx: No Neurological: TIA,CVA BLURRY VISION, LEFT SIDED WEAKNESS BASELINE APHASIA EENT: NONE Cardiovascular: HTN, HDL L CAROTID STENOSIS WITH ENDARTERECTOMY Respiratory: COPD, CHRONIC BRONCHITIS Gastrointestinal: NONE Hepatic: NONE Renal: NONE Musculoskeletal: NONE Psychiatric: SCHIZOPHRNIA Endocrine: NONE Blood Disorders: NONE Cancer(s): BREAST BIOPSY ADMISSION DISCHARGE RN/Reproductive: NONE Surgical History Surgical History: non-contributory Psychosocial History Where Do You Live? Home Services at Home: None Smoking Status: Current Some Day Smoker ETOH Use: denies use Exam & Diagnostic Data Vital Signs and I&O Vital Signs Date Time Temp Pulse Resp B/P Pulse O2 O2 Flow FiO2 Ox Delivery Rate 09/25 2317 98.0 50 18 138/70 94 Room Air 09/25 1549 97.9 50 17 156/70 96 Room Air 09/25 0829 97.6 57 20 158/67 98 Nasal 2.0L Cannula Intake & Output 09/26 0809/26 0000 09/25 1600 09/25 0800 09/25 0000 09/24 1600 Intake Total 600 005 476 4165 540 Output Total 800 7828 930 1722 200 Balance -200 -40 -100 -10 340 Intake, IV 400 400 100 Intake, Oral 600 960 100 840 440 Number 0 Bowel Movements Output, Urine 800 8879 286 3996 200 Patient 158 lb Weight Physical Exam: Gen: The patient is in no acute distress HEENT: Normal nose, ears, and oropharynx. Pupils equal bilaterally. Conjunctiva normal. Neck: Supple with no JVD, no masses, and no thyromegaly Lungs: Clear to auscultation with normal respiratory effort Heart: RRR, S1, S2, no murmurs. No peripheral edema, 2+ pulses in the lower extremities bilaterally Abdomen: Soft, nontender, no masses. No hepatomegaly. No splenomegaly Extremities: No clubbing or cyanosis. Normal muscle strength in the upper and lower extremities. Skin: Normal skin turgor with no skin ulcers or lesions noted. Neuro: Cranial nerves intact. Sensation intact Psych: Alert and oriented 3 with appropriate affect Labs/Omero Results: Laboratory Tests 09/25 09/24 09/24 09/24 0635 1902 1300 0810 Chemistry Sodium (137 - 145 mmol/L) 142 Potassium (3.5 - 5.1 mmol/L) 4.7 Chloride (98 - 107 mmol/L) 111 H Carbon Dioxide (22 - 30 mmol/L) 25 Anion Gap (5 - 16) 6 BUN (7 - 17 mg/dL) 19 H Creatinine (0.5 - 1.0 mg/dL) 1.2 H Estimated GFR (>60 ml/min) 44 L BUN/Creatinine Ratio (7 - 25 %) 15.8 Magnesium (1.6 - 2.3 mg/dL) 2.3 Troponin I (< 0.11 ng/ml) < 0.01 < 0.01 Coagulation PT (9.4 - 12.5 SEC) 10.9 INR (0.90 - 1.19) 1.04 APTT (25 - 37 SEC) 29 Hematology CBC w Diff NO MAN DIFF REQ WBC (4.8 - 10.8 /CUMM) 5.8 RBC (4.20 - 5.40 /CUMM) 4.12 L Hgb (12.0 - 16.0 G/DL) 13.1 Hct (37 - 47 %) 38.1 MCV (81.0 - 99.0 FL) 92.5 MCH (27.0 - 31.0 PG) 31.7 H RDW (11.5 - 14.5 %) 15.2 H Plt Count (130 - 400 /CUMM) 179 MPV (7.4 - 10.4 FL) 8.1 Gran % (42.2 - 75.2 %) 64.2 Lymphocytes % (20.5 - 51.1 %) 25.6 Monocytes % (1.7 - 9.3 %) 8.2 Eosinophils % (0 - 5 %) 1.5 Basophils % (0.0 - 2.0 %) 0.5 Absolute Granulocytes (1.4 - 6.5 /CUMM) 3.7 Absolute Lymphocytes (1.2 - 3.4 /CUMM) 1.5 Absolute Monocytes (0.10 - 0.60 /CUMM) 0.5 Absolute Eosinophils (0.0 - 0.7 /CUMM) 0.1 Absolute Basophils (0.0 - 0.2 /CUMM) 0 PUBS MCHC (33.0 - 37.0 G/DL) 34.3 09/24 09/24 0808 0724 Chemistry Sodium (137 - 145 mmol/L) 139 Potassium (3.5 - 5.1 mmol/L) 4.5 Chloride (98 - 107 mmol/L) 106 Carbon Dioxide (22 - 30 mmol/L) 24 Anion Gap (5 - 16) 9 BUN (7 - 17 mg/dL) 21 H Creatinine (0.5 - 1.0 mg/dL) 1.5 H Estimated GFR (>60 ml/min) 34 L BUN/Creatinine Ratio (7 - 25 %) 14.0 Glucose (65 - 99 mg/dL) 93 Calcium (8.4 - 10.2 mg/dL) 9.7 Total Bilirubin (0.2 - 1.3 mg/dL) 0.5 AST (14 - 36 U/L) 19 ALT (9 - 52 U/L) 25 Alkaline Phosphatase (<127 U/L) 60 Ammonia (9 - 30 umol/L) < 9 L Troponin I (< 0.11 ng/ml) < 0.01 Total Protein (6.3 - 8.2 g/dL) 6.7 Albumin (3.5 - 5.0 g/dL) 3.8 Globulin (1.9 - 4.2 gm/dL) 2.9 Albumin/Globulin Ratio (1.1 - 2.2 %) 1.3 Triglycerides (<150 mg/dL) 269 H Cholesterol (<200 MG/DL) 138 LDL Cholesterol, Calc (65 - 129 mg/dL) 46 L HDL Cholesterol (40 - 60 mg/dL) 39 L Cholesterol/HDL Ratio (0.00 - 4.23 %) 4 Hematology CBC w Diff NO MAN DIFF REQ WBC (4.8 - 10.8 /CUMM) 7.1 RBC (4.20 - 5.40 /CUMM) 4.31 Hgb (12.0 - 16.0 G/DL) 13.7 Hct (37 - 47 %) 39.9 MCV (81.0 - 99.0 FL) 92.5 MCH (27.0 - 31.0 PG) 31.8 H RDW (11.5 - 14.5 %) 15.3 H Plt Count (130 - 400 /CUMM) 188 MPV (7.4 - 10.4 FL) 8.7 Gran % (42.2 - 75.2 %) 65.5 Lymphocytes % (20.5 - 51.1 %) 25.4 Monocytes % (1.7 - 9.3 %) 7.1 Eosinophils % (0 - 5 %) 1.6 Basophils % (0.0 - 2.0 %) 0.4 Absolute Granulocytes (1.4 - 6.5 /CUMM) 4.7 Absolute Lymphocytes (1.2 - 3.4 /CUMM) 1.8 Absolute Monocytes (0.10 - 0.60 /CUMM) 0.5 Absolute Eosinophils (0.0 - 0.7 /CUMM) 0.1 Absolute Basophils (0.0 - 0.2 /CUMM) 0 PUBS MCHC (33.0 - 37.0 G/DL) 34.4 Urines Urinalysis LIGHT H Urine Color (YEL,AMB,STR) YEL Urine Clarity (CLEAR) HAZY H Urine pH (5.0 - 8.0) 6.0 Ur Specific [place] (1.001 - 1.035) 1.020 Urine Protein (NEG,<30 MG/DL) NEG Urine Ketones (NEG) NEG Urine Nitrite (NEG) NEG Urine Bilirubin (NEG) NEG Urine Urobilinogen (0.1 - 1.0 EU/dl) 0.2 Ur Leukocyte Esterase (NEG) SMALL H Ur Microscopic SEDIMENT EXAMINED Urine RBC (0 - 5 /HPF) RARE Urine WBC (0 - 2 /HPF) 25-50 H Ur Epithelial Cells (NONE,FEW) MOD H Urine Hemoglobin (NEG) NEG Urine Glucose (N MG/DL) NEG 09/24 0718 Chemistry Hemoglobin A1c Pending Diagnostic Data EKG Results EKG tracing is independently reviewed, and reveals normal sinus rhythm at 65 with borderline inferior Q-waves CXR Results Chest x-ray: No evidence of acute disease Other Results Head CT: Large old left frontal infarct similar to previous exams. Question new left posterior parietal infarct. Assessment/Plan Assessment/Plan Assessment: 1. History of CVA 2. Status post left carotid endarterectomy 2 weeks ago 3. Hypertension 4. Possible new CVA Plan: 1. Monitor on telemetry 2. Follow Neurology recommendations 3. Continue hypertension medications 4. Continue aspirin 5. Echocardiogram Consult Acknowledgment - Thank you for your consult request.
[2016-09-25 23:17] VITALS: BP 138/70
--- NOTE | 2016-09-26 07:26 | PN- Housestaff ---
CHAPITO VARGAS 09/26/16 0726: Subjective Follow-up For: New onset CVA-left posterior parietal area infarct Old stroke with expressive aphasia Left carotid endarterectomy Chronic kidney disease stage III Complaints: pain scale (0-10) Tele-Events Since Last Visit: Sinus rhythm Sinus bradycardia Rate-39-47 No acute overnight events noticed on telemetry monitoring Subjective: Patient was seen and examined this morning. She is alert awake and oriented to time place and person. No acute events monitored overnight. She has word finding difficulty. Which is the same since admission. According to her brother who is sitting with her at bedside reported worsening aphasia for a month after left cea surgery. Complete neuro examination was normal except for aphasia She denies any weakness, sensory changes, dizziness or lightheadedness, new vision changes, gait changes, swallowing difficulties. She reported left-sided occipital headache, 3/10, nonradiating which has been there for past 2 weeks. Vitals were stable. She is afebrile, heart rate 50, respiratory rate 18, blood pressure 138/70, saturating at 94% on room air. Review of Systems Constitutional: Denies: see HPI. Objective Last 24 Hrs of Vital Signs/I&O Vital Signs Date Time Temp Pulse Resp B/P Pulse O2 O2 Flow FiO2 Ox Delivery Rate 09/26 1627 98.6 50 20 144/72 97 Room Air 09/26 1443 58 150/62 09/26 0830 98.1 47 20 148/78 94 Room Air 09/25 2317 98.0 50 18 138/70 94 Room Air Intake & Output 09/26 1600 09/26 0800 09/26 0000 Intake Total 630 1000 600 Output Total 900 800 Balance 630 100 -200 Intake, IV 150 600 Intake, Oral 480 400 600 Number 0 Bowel Movements Output, Urine 900 800 Physical Exam General Appearance: Alert, Oriented X3, Cooperative, No Acute Distress Skin: No Rashes HEENT: Atraumatic, Mucous Membr. moist/pink Neck: Supple, No JVD Lymphatic: Cervical nl Cardiovascular: Regular Rate, Normal S1, Normal S2 Lungs: Normal Air Movement Abdomen: Normal Bowel Sounds, Soft, No Tenderness Neurological: Strength at 5/5 X4 Ext, Normal Tone, Sensation Intact, expressive aphasia Extremities: No Clubbing, No Cyanosis, No Edema Vascular: Normal Pulses Current Medications: Current Medications Sig/Dalia Start time Last Medication Dose Route Stop Time Status Admin Acetaminophen 650 MG .STK-MED ONE 09/26 0325 DC PO 09/26 0326 Acetaminophen 650 MG Q4P PRN 09/25 0900 AC 09/26 PO 1444 Albuterol Sulfate 1 PUF BID 09/24 2200 AC 09/26 INH 0937 Aspirin 81 MG DAILY 09/25 1000 AC 09/26 PO 0932 Atorvastatin Calcium 40 MG 1700 09/24 1700 AC 09/26 PO 1654 Budesonide/ 2 PUF BID 09/24 2200 AC 09/26 Formoterol Fumarate INH 0932 Citalopram 20 MG DAILY 09/24 1145 AC 09/26 Hydrobromide PO 0932 Dextrose/Sodium 1,000 ML Q20H 09/24 1115 DC 09/26 Chloride IV 0330 Diphenhydramine HCl 25 MG Q6P PRN 09/24 1115 AC IV Docusate Sodium 100 MG DAILY 09/25 1632 AC 09/26 PO 0932 Gabapentin 100 MG BID 09/24 1145 AC 09/26 PO 0932 Heparin Sodium 5,000 UNIT Q8 09/25 2234 AC 09/26 (Porcine) SC 1358 Hydromorphone HCl 0.5 MG Q4P PRN 09/24 1115 AC 09/24 IV 2112 Losartan Potassium 50 MG DAILY 09/26 1343 AC 09/26 PO 1443 Nicotine 14 MG DAILY 09/24 1226 AC 09/26 TOP 1227 Patient Medication 1 ED .STK-MED ONE 09/26 1409 CA Teaching ED 09/26 1410 Patient Medication 1 ED .STK-MED ONE 09/26 1409 CA Teaching ED 09/26 1410 Risperidone 3 MG AT BEDTIME 09/24 2200 AC 09/25 PO 2101 Senna/Docusate Sodium 1 TAB BID 09/25 2200 AC 09/26 PO 0932 Trimethobenzamide HCl 200 MG TID PRN 09/24 1215 AC IM Last 24 Hrs of Lab/Omero Results Last 24 Hrs of Labs/Mics: Laboratory Tests 09/26/16 0615: Anion Gap 11, Estimated GFR 44 L, BUN/Creatinine Ratio 12.5 Assessment/Plan Assessment: This is a a 71-year-old 78 with medical history thickened for TIA and left MCA territorial infarct with resultant right-sided weakness and expressive aphasia, critical stenosis of left internal carotid artery status post left carotid endarterectomy with Hemashield patch angioplasty performed on 09/11/2016, hypertension, dyslipidemia COPD and chronic bronchitis, schizophrenia who is admitted to the hospital with altered mental status, acute confusion and was found to be having acute left posterior parietal cerebrovascular accident. The patient was seen in the emergency room on 09/17/2016, approximately one week after left carotid endarterectomy with complaints of severe left-sided headache, a CAT scan of the head revealed a new trace left supratentorial subarachnoid hemorrhage without mass effect or midline shift and the old left MCA territory infarction. Dexter Bennett MD discussed the case with Dr. Andrew Steiner of the neurosurgical service at the time who didn't feel that the pattern of potential bleeding was consistent with aneurysmal bleed and there is no subarachnoid hemorrhage and at the patient was sent home. Her headache improved with intravenous ketorolac. However, over the course of the next couple of days the patient continued to experience headaches and was reevaluated at [facility] where workup was repeated and again negative and she was discharged subsequently with pain medications. Vitals on admission-afebrile, pulse 59, respiratory rate 18, blood pressure 139/ 63, saturating at 91% on room air. Present labs on admission-CBC normal, BUN 21 and creatinine 1.5. EKG Results Sinus tachycardia with rate of 110, prolonged QTC of 590 CXR Results- Clear head ct - Large old left frontal infarct similar to previous exams. Question new left posterior parietal infarct. carotid doppler- A hemodynamically significant stenosis of greater than 50% is not present on the right. - Problems - Acute left posterior parietal cerebrovascular accident Prolonged QTc interval Carotid artery disease status post left and carotid artery endarterectomy Dyslipidemia COPD Schizophrenia #Acute left posterior parietal cerebrovascular accident: Patient presented with altered mental status and acute confusion. According to her brother she has been having worsening aphasia since one month after left carotid endarterectomy surgery. Of note she has ongoing left occipital headaches for couple of weeks-outpatient workup was negative twice. No focal neurological deficits except for Expressive aphasia. Head CT showed new onset CVA involving left parietal lobe. ABCD2 SCORE-age greater than 60, speech impairment, duration greater than 60 minutes-she is at moderate risk with 4 points-risk of subsequent stroke 4.1%. * Admitted to telemetry for continuous monitoring * Monitor vitals closely * Maintain oxygen saturations above 92% * Neuro checks. * NIH STROKE SCALE * Serial EKGs and troponins were negative. * Continuous monitoring specialist for any arrhythmias * Neurologist on board * Will follow-up with the MRI head * Out of window for TPA * Continue aspirin 81 mg * Continue Lipitor 40 mg daily * Will follow-up echocardiogram * PT/OT on board * Passed swallow evaluation * Speech therapy on board * Follow neurology recommendations #Bradycardia * Patient noted to be bradycardic - heart rate ranging 39-47. * Asymptomatic * Not on any cee blocking agents * Continue with telemetry monitoring * cardiology recommendations appreciated * At this time she has not had definite symptoms attributable to the bradycardia. If she does have symptomatic bradycardia then a permanent pacemaker would be indicated. #Chronic kidney disease stage III: * Creatinine improved from 1.5 to 1.2 * Avoid nephrotoxins * Monitor creatinine levels #History of COPD * TRC/nebulizers as needed Schizophrenia * Continue home dose of risperidone at bedtime * Continue home dose of Celexa Neuropathy * Continue home dose of gabapentin hypertension * Patient takes valsartan 160 mg daily at home * We started her on losartan 50 mg in the hospital * Optimize blood pressure control gradually, goal should be 140 systolic #DVT prophylaxis * subcutaneous heparin #Full code Problem List: 1. CVA (cerebral vascular accident) 2. Altered mental status 3. Headache Pain Ratin Pain Location: headaches Pain Goal: Remain pain free Pain Plan: tylinol tramadol Tomorrow's Labs & Rationales: none EMERALD MOORE,ROQUE 09/26/16 1138: Attending MD Review Statement Attending Statement Attending MD Statement: examined this patient, discuss w/resident/PA/[employer], agreed w/resident/PA/[employer], discussed with family, reviewed EMR data (avail), discussed with nursing Attending Assessment/Plan: Patient is doing better today. She worked with PT and was fairly independent. Her brother told the house staff that she clearly had some acute event that prompted him to bring her to the ER. She forgot her Social Security number , she forgot the code to open the door and she was complaining of a headache. She is a 71-year-old with underlying COPD, previous stroke with expressive aphasia who had a carotid endarterectomy on September 02 and has made 2 ED visits for headache and neurological symptoms since September 02. Her most recent CT head done on admission shows a questionable new parietal CVA and will get an MRI to clarify further.
[2016-09-26 08:30] VITALS: BP 148/78
--- NOTE | 2016-09-26 10:27 | ULTRASOUND REPORT ---
EXAMINATION: US DUPLEX CAROTID, BILATERAL CLINICAL INFORMATION: Right carotid stenosis, left endarterectomy. New cerebrovascular accident. COMPARISON: None TECHNIQUE: Duplex bilateral carotid ultrasound was performed using real-time ultrasound and Doppler techniques (integrating B-mode 2D vascular images, Doppler spectral analysis and color-flow Doppler imaging). These techniques were utilized to interrogate the extracranial carotid and vertebral arteries bilaterally. The degree of stenosis is based off criteria similar to NASCET. FINDINGS: 1. On the right: Plaque is present at the carotid bifurcation extending into the right ICA. However, velocities are normal and do not suggest a stenosis of greater than 50% diameter reduction in the right ICA. The vertebral artery is patent demonstrating antegrade flow. 2. On the left: No significant plaque is noted within the proximal internal and external carotid arteries. The peak systolic and diastolic velocities as measured within the proximal internal carotid artery, however, are elevated at 148 cm/s. The vertebral artery is patent demonstrating antegrade flow. The right ECA demonstrates a mild stenosis with peak systolic velocity of under 200 cm/s. The left ECA demonstrates a moderate stenosis with peak systolic velocity of 297 cm/s. Subclavian artery waveforms are normal. IMPRESSION: A hemodynamically significant stenosis of greater than 50% is not present on the right. Despite elevated velocities on the left, no plaque is seen to suggest the presence of a stenosis.
--- NOTE | 2016-09-26 11:43 | Patient Discharge Instructions ---
Discharge Instructions General Discharge Information You were seen/treated for: New CVA Left posterior parietal infarct Worsening aphasia You had these procedures: none Watch for these problems: Worsening aphasia Weakness or sensory changes Special Instructions: Follow-up with primary care doctor in 1 week Follow-up with the neurologist in 1 week Diet Continue normal diet: Yes Activity Full Activity/No Limits: Yes Acute Coronary Syndrome Inclusion Criteria At DC or during hospital stay patient has or had the following: ACS DIAGNOSIS No Discharge Core Measures Meds if any: Prescribed or Continued at Discharge Meds if any: NOT Prescribed or Continued at Discharge Congestive Heart Failure Inclusion Criteria At DC or during hospital stay patient has or had the following: CHF DIAGNOSIS No Discharge Core Measures Meds if any: Prescribed or Continued at Discharge Meds if any: NOT Prescribed or Continued at Discharge Cerebrovascular accident Inclusion Criteria At DC or during hospital stay patient has or had the following: CVA/TIA Diagnosis Yes Discharge Core Measures Meds if any: Prescribed or Continued at Discharge Meds if any: NOT Prescribed or Continued at Discharge Venous thromboembolism Inclusion Criteria VTE Diagnosis No VTE Type NONE VTE Confirmed by (Test) NONE Discharge Core Measures - Per Current guidelines, there needs to be overlap - treatment for the first 5 days of Warfarin therapy. - If discharged on Warfarin prior to 5 days of - overlap therapy, the patient will need to be - assessed for post discharge needs including - *Post discharge parental anticoagulation - *Warfarin and/or parental anticoagulation education - *Follow up date to check INR post discharge At least 5 days overlap therapy as Inpatient No Meds if any: Prescribed or Continued at Discharge Note: Overlap Therapy is Warfarin and Anticoagulant Meds if any: NOT Prescribed or Continued at Discharge
--- NOTE | 2016-09-26 15:33 | PN- Cardiology ---
Subjective Subjective: The patient reports that she is feeling better. No new neurologic symptoms. No chest pain. No palpitations. No diaphoresis. security monitor reveals prolonged episodes of sinus bradycardia in the 40s. Objective Vital Signs and I&Os Vital Signs Date Time Temp Pulse Resp B/P Pulse O2 O2 Flow FiO2 Ox Delivery Rate 09/26 1443 58 150/62 09/26 0830 98.1 47 20 148/78 94 Room Air 09/25 2317 98.0 50 18 138/70 94 Room Air 09/25 1549 97.9 50 17 156/70 96 Room Air Intake & Output 09/26 1600 09/26 0800 09/26 0000 09/25 1600 09/25 0800 09/25 0000 Intake Total 630 1000 600 279 810 9694 Output Total 903 347 4530 600 1250 Balance 630 100 -200 -40 -100 -10 Intake, IV 150 600 400 400 Intake, Oral 480 400 600 960 100 840 Number 0 0 Bowel Movements Output, Urine 236 666 0082 600 1250 Physical Exam: Gen: The patient is in no acute distress HEENT: Normal nose, ears, and oropharynx. Pupils equal bilaterally. Conjunctiva normal. Neck: Supple with no JVD, no masses, and no thyromegaly Lungs: Clear to auscultation with normal respiratory effort Heart: RRR, S1, S2, no murmurs. No peripheral edema, 2+ pulses in the lower extremities bilaterally Abdomen: Soft, nontender, no masses. No hepatomegaly. No splenomegaly Extremities: No clubbing or cyanosis. Normal muscle strength in the upper and lower extremities. Skin: Normal skin turgor with no skin ulcers or lesions noted. Neuro: Cranial nerves intact. Sensation intact Current Medications: Current Medications Sig/Dalia Start time Last Medication Dose Route Stop Time Status Admin Acetaminophen 650 MG .STK-MED ONE 09/26 0325 DC PO 09/26 0326 Acetaminophen 650 MG Q4P PRN 09/25 0900 AC 09/26 PO 1444 Albuterol Sulfate 1 PUF BID 09/24 2200 AC 09/26 INH 0937 Aspirin 81 MG DAILY 09/25 1000 AC 09/26 PO 0932 Atorvastatin Calcium 40 MG 1700 09/24 1700 AC 09/25 PO 1628 Budesonide/ 2 PUF BID 09/24 2200 AC 09/26 Formoterol Fumarate INH 0932 Citalopram 20 MG DAILY 09/24 1145 AC 09/26 Hydrobromide PO 0932 Dextrose/Sodium 1,000 ML Q20H 09/24 1115 DC 09/26 Chloride IV 0330 Diphenhydramine HCl 25 MG Q6P PRN 09/24 1115 IV Docusate Sodium 100 MG DAILY 09/25 1632 AC 09/26 PO 0932 Gabapentin 100 MG BID 09/24 1145 AC 09/26 PO 0932 Heparin Sodium 5,000 UNIT Q8 09/25 2234 AC 09/26 (Porcine) SC 1358 Hydromorphone HCl 0.5 MG Q4P PRN 09/24 1115 AC 09/24 IV 2112 Losartan Potassium 50 MG DAILY 09/26 1343 AC 09/26 PO 1443 Nicotine 14 MG DAILY 09/24 1226 09/26 TOP 1227 Patient Medication 1 ED .STK-MED ONE 09/26 1409 [place] Teaching ED 09/26 1410 Patient Medication 1 ED .STK-MED ONE 09/26 1409 [place] Teaching ED 09/26 1410 Risperidone 3 MG AT BEDTIME 09/24 2200 AC 09/25 PO 2101 Senna/Docusate Sodium 1 TAB BID 09/25 2200 AC 09/26 PO 0932 Trimethobenzamide HCl 200 MG TID PRN 09/24 1215 AC IM Results Last 48 Hrs of Labs/Mics: Laboratory Tests 09/26/16 0615: Anion Gap 11, Estimated GFR 44 L, BUN/Creatinine Ratio 12.5 09/25/16 0635: Anion Gap 6, Estimated GFR 44 L, BUN/Creatinine Ratio 15.8, Magnesium 2.3, CBC w Diff NO MAN DIFF REQ, RBC 4.12 L, MCV 92.5, MCH 31.7 H, RDW 15.2 H, MPV 8.1 , Gran % 64.2, Lymphocytes % 25.6, Monocytes % 8.2, Eosinophils % 1.5, Basophils % 0.5, Absolute Granulocytes 3.7, Absolute Lymphocytes 1.5, Absolute Monocytes 0.5, Absolute Eosinophils 0.1, Absolute Basophils 0, PUBS MCHC 34.3 09/24/16 1902: Troponin I < 0.01 Assessment/Plan Assessment/Plan Assessment: 1. History of CVA 2. Status post left carotid endarterectomy 2 weeks ago 3. Hypertension 4. Possible new CVA 5. Sinus bradycardia Plan: 1. Monitor on telemetry. At this time she has not had definite symptoms attributable to the bradycardia. If she does have symptomatic bradycardia then a permanent pacemaker would be indicated. 2. Follow Neurology recommendations 3. Continue hypertension medications 4. Continue aspirin 5. Echocardiogram 6. The patient at this time that she sees Dr. Mondragon. I will notify Rony Mondragon MD to see assume her cardiac followup. Continue telemetry? Yes
--- NOTE | 2016-09-26 15:36 | PN- Neurology ---
Subjective Subjective: Headache better with when necessary Tylenol and tramadol. Her Maya left-sided headaches began just after the left carotid endarterectomy September 11. Several ER visits for headache. CT scan reportedly showed a small amount of subarachnoid blood is an equivocal new left frontal lucency suggestive of a subacute stroke. The scan also shows the large old left posterior MCA infarct According to the patient's sister her language impairment worsened after surgery but is improving gradually. Not yet quite back to baseline. Review of Systems: Current headache 12/01. Denied problems with vision, chest pain or palpitations Objective Vital Signs and I&Os Vital Signs Date Time Temp Pulse Resp B/P Pulse O2 O2 Flow FiO2 Ox Delivery Rate 09/26 1443 58 150/62 09/26 0830 98.1 47 20 148/78 94 Room Air 09/25 2317 98.0 50 18 138/70 94 Room Air 09/25 1549 97.9 50 17 156/70 96 Room Air Intake & Output 09/26 1600 09/26 0800 09/26 0000 09/25 1600 09/25 0800 09/25 0000 Intake Total 630 1000 600 984 979 0202 Output Total 021 078 5918 600 1250 Balance 630 100 -200 -40 -100 -10 Intake, IV 150 600 400 400 Intake, Oral 480 400 600 960 100 840 Number 0 0 Bowel Movements Output, Urine 520 624 7777 600 1250 Physical Exam: Awake, alert, non-fluent dysphasia but able to maintain a conversation. Word finding difficulty. Visual gann full pupils midsize equal round and reactive. Eye movements normal. No facial asymmetry. Handgrips strong, no drift Current Medications: Current Medications Sig/Dalia Start time Last Medication Dose Route Stop Time Status Admin Acetaminophen 650 MG .STK-MED ONE 09/26 0325 DC PO 09/26 0326 Acetaminophen 650 MG Q4P PRN 09/25 0900 AC 09/26 PO 1444 Albuterol Sulfate 1 PUF BID 09/24 2200 AC 09/26 INH 0937 Aspirin 81 MG DAILY 09/25 1000 AC 09/26 PO 0932 Atorvastatin Calcium 40 MG 1700 09/24 1700 AC 09/25 PO 1628 Budesonide/ 2 PUF BID 09/24 2200 AC 09/26 Formoterol Fumarate INH 0932 Citalopram 20 MG DAILY 09/24 1145 AC 09/26 Hydrobromide PO 0932 Dextrose/Sodium 1,000 ML Q20H 09/24 1115 DC 09/26 Chloride IV 0330 Diphenhydramine HCl 25 MG Q6P PRN 09/24 1115 AC IV Docusate Sodium 100 MG DAILY 09/25 1632 AC 09/26 PO 0932 Gabapentin 100 MG BID 09/24 1145 AC 09/26 PO 0932 Heparin Sodium 5,000 UNIT Q8 09/25 2234 AC 09/26 (Porcine) SC 1358 Hydromorphone HCl 0.5 MG Q4P PRN 09/24 1115 AC 09/24 IV 2112 Losartan Potassium 50 MG DAILY 09/26 1343 AC 09/26 PO 1443 Nicotine 14 MG DAILY 09/24 1226 AC 09/26 TOP 1227 Patient Medication 1 ED .STK-MED ONE 09/26 1409 [place] Teaching ED 09/26 1410 Patient Medication 1 ED .STK-MED ONE 09/26 1409 [place] Teaching ED 09/26 1410 Risperidone 3 MG AT BEDTIME 09/24 2200 AC 09/25 PO 2101 Senna/Docusate Sodium 1 TAB BID 09/25 2200 AC 09/26 PO 0932 Trimethobenzamide HCl 200 MG TID PRN 09/24 1215 AC IM Results Last 24 Hours of Lab Results: Laboratory Tests 09/26 0615 Chemistry Sodium (137 - 145 mmol/L) 141 Potassium (3.5 - 5.1 mmol/L) 4.3 Chloride (98 - 107 mmol/L) 108 H Carbon Dioxide (22 - 30 mmol/L) 23 Anion Gap (5 - 16) 11 BUN (7 - 17 mg/dL) 15 Creatinine (0.5 - 1.0 mg/dL) 1.2 H Estimated GFR (>60 ml/min) 44 L BUN/Creatinine Ratio (7 - 25 %) 12.5 Recent Imaging Studies: Carotid Dopplers September 25 showed less than 50% right ICA stenosis and no evidence of left ICA stenosis. Vertebral flows were antegrade Assessment/Plan Assessment: Left headache, worsened language impairment (dysphasia dates from past CVA), CT scan showing a subtle subarachnoid blood and lucency in the frontal lobe: All suggest a new mild left hemispheric stroke. Headache coming under control with when necessary Tylenol and tramadol On appropriate treatment for secondary stroke risk reduction. BP under acceptable control at this point in time Plan: MRI of the brain without gadolinium Optimize blood pressure control gradually, goal should be 140 systolic Speech therapy consultation Ambulate with PT
[2016-09-26 16:27] VITALS: BP 144/72
[2016-09-26 23:00] VITALS: BP 152/68
--- NOTE | 2016-09-27 07:29 | PN- Housestaff ---
CHAPITO VARGAS 09/27/16 0729: Subjective Follow-up For: New onset CVA-left posterior parietal area infarct Old stroke with expressive aphasia Left carotid endarterectomy Chronic kidney disease stage III Complaints: pain scale (0-10) Tele-Events Since Last Visit: Sinus rhythm Sinus bradycardia Rate-39-45 No acute overnight events noticed on telemetry monitoring Subjective: Patient was seen and examined this morning. She is alert awake and oriented to time place and person. No acute events monitored overnight. She has word finding difficulty. Which is the same since admission. Complete neuro examination was normal except for aphasia She denies any weakness, sensory changes, dizziness or lightheadedness, new vision changes, gait changes, swallowing difficulties. She reported left-sided occipital headache, 3/10, nonradiating which has been there for past 2 weeks. Vitals were stable. She is afebrile, heart rate 47, respiratory rate 18, blood pressure 152/68, saturating at 95% on room air. Review of Systems Constitutional: Denies: see HPI. Objective Last 24 Hrs of Vital Signs/I&O Vital Signs Date Time Temp Pulse Resp B/P Pulse O2 O2 Flow FiO2 Ox Delivery Rate 09/27 0910 45 122/72 09/27 0811 98.1 45 20 122/72 95 Nasal 2.5L Cannula 09/27 0800 Room Air 09/26 2300 97.9 47 18 152/68 95 / 1627 98.6 50 20 144/72 97 Room Air 09/26 1443 58 150/62 Intake & Output 09/27 1600 09/27 0800 09/27 0000 Intake Total 720 Output Total Balance 720 Intake, Oral 720 Physical Exam General Appearance: Alert, Oriented X3, Cooperative, No Acute Distress Skin: No Rashes HEENT: Atraumatic, Mucous Membr. moist/pink Neck: Supple, No JVD Lymphatic: Cervical nl Cardiovascular: Regular Rate, Normal S1, Normal S2, No Murmurs Lungs: Normal Air Movement Abdomen: Normal Bowel Sounds, Soft, No Tenderness Neurological: Strength at 5/5 X4 Ext, Normal Tone, Sensation Intact, Cranial Nerves 3-12 NL, EXPRESSIVE APHASIA Extremities: No Clubbing, No Cyanosis, No Edema Vascular: Normal Pulses Current Medications: Current Medications Sig/Dalia Start time Last Medication Dose Route Stop Time Status Admin Acetaminophen 650 MG .STK-MED ONE 01/04 0518 DC PO 09/27 0519 Acetaminophen 650 MG .STK-MED ONE 09/26 2357 DC PO 09/26 2358 Acetaminophen 650 MG .STK-MED ONE 09/26 1852 DC PO 09/26 1853 Acetaminophen 650 MG .STK-MED ONE 09/26 1441 DC PO 09/26 1442 Acetaminophen 650 MG Q4P PRN 09/25 0900 AC 09/26 PO 2358 Albuterol Sulfate 1 PUF BID 09/24 2200 AC 09/27 INH 0915 Aspirin 81 MG DAILY 09/25 1000 AC 09/27 PO 0910 Atorvastatin Calcium 40 MG 1700 09/24 1700 AC 09/26 PO 1654 Budesonide/ 2 PUF BID 09/24 2200 AC 09/27 Formoterol Fumarate INH 0915 Citalopram 20 MG DAILY 09/24 1145 AC 09/27 Hydrobromide PO 0910 Diphenhydramine HCl 25 MG Q6P PRN 09/24 1115 AC IV Docusate Sodium 100 MG DAILY 09/25 1632 AC 09/27 PO 0910 Gabapentin 100 MG BID 09/24 1145 AC 09/27 PO 0911 Heparin Sodium 5,000 UNIT Q8 09/25 2234 AC 09/27 (Porcine) SC 1347 Hydromorphone HCl 0.5 MG Q4P PRN 09/24 1115 AC 09/27 IV 0555 Losartan Potassium 50 MG DAILY 09/26 1343 AC 09/27 PO 0910 Nicotine 14 MG DAILY 09/27 1314 CAN TOP Nicotine 14 MG DAILY 09/24 1226 AC 09/27 TOP 0911 Risperidone 3 MG AT BEDTIME 09/24 2200 AC 09/26 PO 2032 Senna/Docusate Sodium 1 TAB BID 09/25 2200 AC 09/27 PO 0911 Trimethobenzamide HCl 200 MG TID PRN 09/24 1215 AC IM Assessment/Plan Assessment: This is a a 71-year-old 78 with medical history thickened for TIA and left MCA territorial infarct with resultant right-sided weakness and expressive aphasia, critical stenosis of left internal carotid artery status post left carotid endarterectomy with Hemashield patch angioplasty performed on 09/11/2016, hypertension, dyslipidemia COPD and chronic bronchitis, schizophrenia who is admitted to the hospital with altered mental status, acute confusion and was found to be having acute left posterior parietal cerebrovascular accident. The patient was seen in the emergency room on 09/17/2016, approximately one week after left carotid endarterectomy with complaints of severe left-sided headache, a CAT scan of the head revealed a new trace left supratentorial subarachnoid hemorrhage without mass effect or midline shift and the old left MCA territory infarction. Dexter Bennett MD discussed the case with Dr. Andrew Steiner of the neurosurgical service at the time who didn't feel that the pattern of potential bleeding was consistent with aneurysmal bleed and there is no subarachnoid hemorrhage and at the patient was sent home. Her headache improved with intravenous ketorolac. However, over the course of the next couple of days the patient continued to experience headaches and was reevaluated at [facility] where workup was repeated and again negative and she was discharged subsequently with pain medications. Vitals on admission-afebrile, pulse 59, respiratory rate 18, blood pressure 139/ 63, saturating at 91% on room air. Present labs on admission-CBC normal, BUN 21 and creatinine 1.5. EKG Results Sinus tachycardia with rate of 110, prolonged QTC of 590 CXR Results- Clear head ct - Large old left frontal infarct similar to previous exams. Question new left posterior parietal infarct. carotid doppler- A hemodynamically significant stenosis of greater than 50% is not present on the right. - Problems - Acute left posterior parietal cerebrovascular accident Prolonged QTc interval Carotid artery disease status post left and carotid artery endarterectomy Dyslipidemia COPD Schizophrenia #Acute left posterior parietal cerebrovascular accident: Patient presented with altered mental status and acute confusion. According to her brother she has been having worsening aphasia since one month after left carotid endarterectomy surgery. Of note she has ongoing left occipital headaches for couple of weeks-outpatient workup was negative twice. No focal neurological deficits except for Expressive aphasia. Head CT showed new onset CVA involving left parietal lobe. BRAIN MRI-Evolving area of early subacute infarction in the left posterior temporal lobe ABCD2 SCORE-age greater than 60, speech impairment, duration greater than 60 minutes-she is at moderate risk with 4 points-risk of subsequent stroke 4.1%. * Admitted to telemetry for continuous monitoring * Monitor vitals closely * Maintain oxygen saturations above 92% * Neuro checks. * NIH STROKE SCALE * Serial EKGs and troponins were negative. * Continuous parimutuel ticket checker for any arrhythmias * Neurologist on board * Out of window for TPA * Continue aspirin 81 mg * Continue Lipitor 40 mg daily * Will follow-up echocardiogram * PT/OT on board * Passed swallow evaluation * Speech therapy on board,OUTPATIENT SPEECH THERAPY AND OCCUPATIONAL THERAPY. #Bradycardia * Patient noted to be bradycardic - heart rate ranging 39-47. * Asymptomatic * Not on any cee blocking agents * Continue with telemetry monitoring * cardiology recommendations appreciated * At this time she has not had definite symptoms attributable to the bradycardia. If she does have symptomatic bradycardia then a permanent pacemaker would be indicated. #Chronic kidney disease stage III: * Creatinine improved from 1.5 to 1.2 * Avoid nephrotoxins * Monitor creatinine levels #History of COPD * TRC/nebulizers as needed Schizophrenia * Continue home dose of risperidone at bedtime * Continue home dose of Celexa Neuropathy * Continue home dose of gabapentin hypertension * Patient takes valsartan 160 mg daily at home * We started her on losartan 50 mg in the hospital * Optimize blood pressure control gradually, goal should be 140 systolic #DVT prophylaxis * subcutaneous heparin #Full code Problem List: 1. CVA (cerebral vascular accident) 2. Bradycardia Pain Ratin Pain Location: HEADACHE Pain Goal: Remain pain free Pain Plan: TYLINOL Tomorrow's Labs & Rationales: NONE EMERALD MOORE,ROQUE 09/27/16 0940: Attending MD Review Statement Attending Statement Attending MD Statement: examined this patient, discuss w/resident/PA/QU[employer]ITATIVE [employer]NALYST [employer]ETING, agreed w/resident/PA/QUANTITATIVE ANALYST [employer], reviewed EMR data (avail), discussed with nursing, discussed with case mgmt Attending Assessment/Plan: Patient has ongoing aphasia here. She is a 71-year-old with a history of old CVA and status post carotid endarterectomy on September 11 who is here now with a new mild left hemispheric stroke per neurology and CT. We are going to get an MRI to confirm and to follow-up the mild subarachnoid bleed that was seen in the earlier CT. She needs ongoing speech therapy and outpatient OT. And if the MRI is okay then likely discharge with outpatient follow-up.
[2016-09-27 08:11] VITALS: BP 122/72
[2016-09-27 09:10] VITALS: BP 122/72
--- NOTE | 2016-09-27 13:18 | MRI REPORT ---
EXAMINATION: MR BRAIN WITHOUT CONTRAST CLINICAL INFORMATION: 71-year-old woman with dysphagia and weakness. COMPARISON: 09/24/2016 and 09/17/2016 head [address]s TECHNIQUE: MRI of the brain without contrast was obtained using routine sequences. FINDINGS: There are patchy areas of evolving early subacute infarction in the left posterior temporal lobe in the left MCA territory. No residual subarachnoid blood products are appreciated. A larger chronic left MCA territory infarct is unchanged and associated with ex vacuo dilation of the left lateral ventricle. No intracranial mass, midline shift, or extra-axial collection is visualized. Normal arterial and venous vascular flow voids are present. The paranasal sinuses are relatively well aerated. There is moderate patchy fluid opacification of bilateral mastoid air cells. IMPRESSION: Evolving area of early subacute infarction in the left posterior temporal lobe.
--- NOTE | 2016-09-28 09:27 | Discharge Summary ---
Visit Information Visit Dates Admission Date: 09/24/16 Discharge Date: 09/27/16 Hospital Course Course Attending Physician: EMERALD MOORE,ROQUE Coleman Primary Care Physician: AGBRIELA CAMARILLO DO Other Care Providers: Licensed Staff Mft-Dr. Dickerson Neurologist-Dr. Preston britt Consulting Request: Consulting Specialty: Cardiology Hospital Course: This is a a 71-year-old 78 with medical history thickened for TIA and left MCA territorial infarct with resultant right-sided weakness and expressive aphasia, critical stenosis of left internal carotid artery status post left carotid endarterectomy with Hemashield patch angioplasty performed on 09/11/2016, hypertension, dyslipidemia COPD and chronic bronchitis, schizophrenia who is admitted to the hospital with altered mental status, acute confusion and was found to be having acute left posterior parietal cerebrovascular accident. The patient was seen in the emergency room on 09/17/2016, approximately one week after left carotid endarterectomy with complaints of severe left-sided headache, a CAT scan of the head revealed a new trace left supratentorial subarachnoid hemorrhage without mass effect or midline shift and the old left MCA territory infarction. Dexter Bennett MD discussed the case with Dr. Andrew Steiner of the neurosurgical service at the time who didn't feel that the pattern of potential bleeding was consistent with aneurysmal bleed and there is no subarachnoid hemorrhage and the patient was sent home. Her headache improved with intravenous ketorolac. However, over the course of the next couple of days the patient continued to experience headaches and was reevaluated at [facility] where workup was repeated and again negative and she was discharged subsequently with pain medication for headaches. Vitals on admission-afebrile, pulse 59, respiratory rate 18, blood pressure 139/ 63, saturating at 91% on room air. labs on admission-CBC normal, BUN 21 and creatinine 1.5. EKG Results Sinus tachycardia with rate of 110, prolonged QTC of 590 CXR Results- Clear head ct - Large old left frontal infarct similar to previous exams. Question new left posterior parietal infarct. carotid doppler- A hemodynamically significant stenosis of greater than 50% is not present on the right. Head mri- Evolving area of early subacute infarction in the left posterior temporal lobe. Acute left posterior parietal cerebrovascular accident: Patient presented with altered mental status and acute confusion. According to her brother she has been having worsening aphasia since one month after left carotid endarterectomy surgery. Of note she has ongoing left occipital headaches for couple of weeks-outpatient workup was negative twice. No focal neurological deficits except for Expressive aphasia. Head CT showed new onset CVA involving left parietal lobe. BRAIN MRI-Evolving area of early subacute infarction in the left posterior temporal lobe ABCD2 SCORE-age greater than 60, speech impairment, duration greater than 60 minutes-she is at moderate risk with 4 points-risk of subsequent stroke 4.1%. Admitted to telemetry floor for further monitoring. Serial EKGs and troponins were negative. Neurologist on board. Patient was out of window for TPA. Continued aspirin 81 mg and Lipitor 40 mg daily. PT/OT on board. Passed swallow evaluation. Speech therapy on board, Recommended OUTPATIENT SPEECH THERAPY AND OCCUPATIONAL THERAPY. #Bradycardia Patient noted to be bradycardic - heart rate ranging 39-47. However asymptomatic. Not on any cee blocking agents. Continued with telemetry monitoring. If she does have symptomatic bradycardia then a permanent pacemaker would be indicated. #Chronic kidney disease stage III: Creatinine improved from 1.5 to 1.2. Avoid nephrotoxins. History of COPD TRC/nebulizers as needed Schizophrenia Continued home dose of risperidone at bedtime Continued home dose of Celexa Neuropathy Continued home dose of gabapentin hypertension Patient takes valsartan 160 mg daily at home We started her on losartan 50 mg in the hospital(valsartan equivalent) #DVT prophylaxis subcutaneous heparin #Full code Complications: none Allergies: Coded Allergies: Penicillins (RASH 09/17/16) Significant Procedures: none Pertinent Lab Results: CXR Results- Clear head ct - Large old left frontal infarct similar to previous exams. Question new left posterior parietal infarct. carotid doppler- A hemodynamically significant stenosis of greater than 50% is not present on the right. Head mri- Evolving area of early subacute infarction in the left posterior temporal lobe. Disposition Summary Disposition Principal Diagnosis: New onset CVA-left posterior parietal area infarct Old stroke with expressive aphasia Left carotid endarterectomy Chronic kidney disease stage III Additional Diagnosis: bradycardia- asymptomatic Discharge Disposition: home health services Discharge Instructions General Discharge Information Code Status: Full Code Patient's Diet: as tolerated Patient's Activity: as tolerated Follow-Up Instructions/Appts: Follow-up with primary care doctor in 1 week Follow-up with the neurologist- dr.webb ferraro in 1 week. outpatient speech therapy Medications at Discharge Discharge Medications: Continue taking these medications: Rosuvastatin Calcium (Crestor) 10 MG TABLET 1 Tablet ORAL DAILY Comments: Last Taken: 09/26/16 Time: 5 PM Citalopram Hydrobromide (Citalopram HBr) 10 MG TABLET 20 Milligram ORAL DAILY Comments: Last Taken: 09/27/16 Time: 10 AM Valsartan (Diovan) 160 MG TABLET 1 Tablet ORAL DAILY Comments: Last Taken: 09/27/16 Time: 10 AM PT GIVEN LOSARTAN Gabapentin (Neurontin) 100 MG CAPSULE 1 Capsule ORAL TWICE DAILY Comments: Last Taken: 09/27/16 Time: 10 AM Risperidone (Risperdal) 3 MG TABLET 1 Tablet ORAL AT BEDTIME Comments: Last Taken: 09/26/16 Time: 10 PM Albuterol Sulfate (Ventolin Hfa) 90 MCG HFA.AER.AD 1 Puff Inhale through mouth TWICE DAILY Comments: Last Taken: 09/27/16 Time: 10 AM Aspirin (Aspirin*) 81 MG TAB.CHEW 1 Tablet ORAL DAILY Qty = 30 Comments: Last Taken:09/27/16 Time: 10 AM Budesonide (Pulmicort Flexhaler) 180 MCG AER.POW.BA 2 Puff Inhale through mouth TWICE DAILY Qty = 3 Comments: Last Taken: 09/27/16 Time: 9AM Copies To: GABRIELA CAMARILLO DO
== END 2016-09-27 15:20 | disposition home health service (06) | DRG 65 ==
LOC: ERH 07:10 → 1NO 10:47 → ERHI 10:47 → 1NO 11:57
PROVIDERS: Emergency Medicine; Internal Medicine Hematology & Oncology; ADMIT Internal Medicine
DX: I60.9 Nontraumatic subarachnoid hemorrhage, unspecified (principal); I69.951 Hemiplegia and hemiparesis following unspecified cerebrovascular disease affecting right dominant side; R00.1 Bradycardia, unspecified; I69.920 Aphasia following unspecified cerebrovascular disease; I12.9 Hypertensive chronic kidney disease with stage 1 through stage 4 chronic kidney disease, or unspecified chronic kidney disease; N18.3 Chronic kidney disease, stage 3 (moderate); J44.9 Chronic obstructive pulmonary disease, unspecified; E78.5 Hyperlipidemia, unspecified; F20.9 Schizophrenia, unspecified; F17.210 Nicotine dependence, cigarettes, uncomplicated
CPT/HCPCS: 1NP; 70551; 36415; 81001; 82436; 87086; 93005; 93010; 96105-GN; 97001-GP; 97003-GO; 97116-GO; 97161-GP; 97165-GO; J0131; J0780; J1200; J1644; J3250; J3490; J7042

== ENCOUNTER 2016-12-04 03:28 | Emergency (ER) | payer OTHER, MEDICARE ==
[~2016-12-04] VITALS: Ht 165.1 cm; Wt 77.1 kg
[~2016-12-04 03:28] MED LIST changes: +PULMICORT FLE180 MC1 INH
--- NOTE | 2016-12-04 04:12 | ED PSYCHIATRIC COMPLAINT ---
See Addendum History of Present Illness General Chief Complaint: Psychiatric Related Complaint Stated Complaint: +SI Source: patient, family, old records Exam Limitations: clinical condition Vital Signs & Intake/Output Vital Signs & Intake/Output Vital Signs Date Time Temp Pulse Resp B/P Pulse O2 O2 Flow FiO2 Ox Delivery Rate 12/04 0544 96.5 67 18 111/58 93 Room Air 12/04 0337 97.2 85 18 89/62 94 Room Air Allergies Coded Allergies: Penicillins (RASH 09/17/16) Reconcile Medications Albuterol Sulfate (Ventolin Hfa) 90 MCG HFA.AER.AD 1 PUF INH BID COPD ( Reported) Aspirin (Aspirin*) 81 MG TAB.CHEW 1 TAB PO DAILY HEART HEALTH Budesonide (Pulmicort Flexhaler) 180 MCG AER.POW.BA 2 PUF INH BID COPD ( Reported) Citalopram Hydrobromide (Citalopram HBr) 10 MG TABLET 20 MG PO DAILY MENTAL HEALTH (Reported) Gabapentin (Neurontin) 100 MG CAPSULE 1 CAP PO BID ANXIETY/NERVE PAIN ( Reported) Risperidone (Risperdal) 3 MG TABLET 1 TAB PO AT BEDTIME SLEEP AIDE (Reported) Rosuvastatin Calcium (Crestor) 10 MG TABLET 1 TAB PO DAILY CHOLESTEROL ( Reported) Valsartan (Diovan) 160 MG TABLET 1 TAB PO DAILY BLOOD PRESSURE (Reported) Triage Note: PT TO TRIAGE WITH . PER PT PT HAS HAD A COUPLE OF STROKES AND IS UNABLE TO COMMUNICATE. PT STATES THAT PT HAS BEEN DEPRESSED, THIS EVENING TOOK 15 RISPERAL PILLS. PT STATES PT HAS BEEN FEELING DEPRESSED AND +SI WITH A PLAN FOR ONE WEEK. Triage Nurses Notes Reviewed? yes Onset: Just prior to arrival Duration: week(s):, constant, continues in ED, getting worse Timing: recent history Severity: severe Associated Symptoms: insomnia, suicidal ideation LMP (ages 10-50): post menopausal : No Patient currently breastfeeds: No HPI: and patient report 3 months prior to admission patient has been depressed with insomnia anorexia suicidal ideation. She reports taking an overdose of Risperdal (15 tabs) 2 hours prior to admission. There has been no fever chills nausea vomiting diarrhea abdominal pain chest pain shortness breath headache dysuria rash bleeding hallucination homicidal ideation. (VIDA MOORE,LUIS MIGUEL) Past History Travel History Traveled to [place] past 21 day No Medical History Any Pertinent Medical History? see below for history Neurological: TIA,CVA BLURRY VISION, LEFT SIDED WEAKNESS BASELINE APHASIA EENT: NONE Cardiovascular: HTN, HDL L CAROTID STENOSIS WITH ENDARTERECTOMY Respiratory: COPD, CHRONIC BRONCHITIS Gastrointestinal: NONE Hepatic: NONE Renal: NONE Musculoskeletal: NONE Psychiatric: depression, SCHIZOPHRNIA Endocrine: NONE Blood Disorders: NONE Cancer(s): BREAST BIOPSY ENGLISH LECTURER/Reproductive: NONE History of MRSA: No History of VRE: No History of CDIFF: No Isolation History: Standard Surgical History Surgical History: non-contributory Psychosocial History Who do you live with Brother Services at Home None What is your primary language Congolese Tobacco Use: Current Daily Use Daily Tobacco Use Amount/Type: => 5 Cigarettes daily Family History Hx Contributory? No (LUIS MIGUEL MCPHERSON MD) Review of Systems Review of Systems Constitutional: Reports: no symptoms. EENTM: Reports: no symptoms. Respiratory: Reports: no symptoms. Cardiovascular: Reports: no symptoms. GI: Reports: no symptoms. Genitourinary: Reports: no symptoms. Musculoskeletal: Reports: no symptoms. Skin: Reports: no symptoms. Neurological/Psychological: Reports: see HPI, depressed. Hematologic/Endocrine: Reports: no symptoms. Immunologic/Allergic: Reports: no symptoms. All Other Systems: Reviewed and Negative (LUIS MIGUEL MCPHERSON MD) Physical Exam Physical Exam General Appearance: well developed/nourished, alert, awake, moderate distress Head: atraumatic, normal appearance Eyes: Bilateral: normal appearance, PERRL, EOMI. 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 yes 1 Depression/Hopelessness? yes 2 Previous Attempts/Psych Care yes 1 Rational Thinking Loss? yes 2 Organized/Serious Attempt yes 2 Social Support? has support 0 Stated Future Intent? yes 2 Total 10 SAD PERSONS Done? yes (LUIS MIGUEL MCPHERSON MD) Progress Differential Diagnosis: drug intoxication, drug overdose, drug withdrawal, electrolyte abnormality Plan of Care: Orders Procedure Date/time Status Regular Diet 12/04 B Active Continuous Observation Monitor 12/05 723 Active Continuous Observation Monitor 12/04 345 Active URINE DRUG SCREEN FOR ER ONLY 12/04 345 Active ACETOMINOPHEN 12/04 345 Complete SALICYLATE 12/04 345 Complete ETHANOL 12/04 345 Complete COMPREHENSIVE METABOLIC PANEL 12/04 345 Complete CBC WITHOUT DIFFERENTIAL 12/04 345 Complete EKG 12/04 345 Active ED CRISIS PSYCH CONSULT 12/04 345 Active Laboratory Tests 12/04/16 0407: Anion Gap 9, Estimated GFR 49 L, BUN/Creatinine Ratio 11.8, Glucose 117 H, Calcium 9.5, Total Bilirubin 0.5, AST 18, ALT 28, Alkaline Phosphatase 71, Total Protein 5.9 L, Albumin 3.2 L, Globulin 2.7, Albumin/Globulin Ratio 1.2, CBC w Diff NO MAN DIFF REQ, RBC 4.31, MCV 91.3, MCH 30.1, RDW 14.3, MPV 8.0, Gran % 47.8, Lymphocytes % 39.6, Monocytes % 9.7 H, Eosinophils % 2.4, Basophils % 0.5 , Absolute Granulocytes 2.6, Absolute Lymphocytes 2.2, Absolute Monocytes 0.5, Absolute Eosinophils 0.1, Absolute Basophils 0, PUBS MCHC 32.9 L, Salicylates < 1.0, Acetaminophen < 10.0 L, Serum Alcohol < 10.0 Initial ED EKG: normal axis, normal intervals, normal p-waves, normal QRS complex, normal sinus rhythm, nonspecific ST T wave chg Prior EKG: unchanged Rhythm Strip: normal sinus rhythm Hand-Off Endorsed To: AMADO BARROW DO Endorsed Time: 0700 Pending: consult (LUIS MIGUEL MCPHERSON MD) Departure Departure Disposition: STILL A PATIENT Condition: Stable Clinical Impression Primary Impression: Depression with suicidal ideation Secondary Impressions: Hypokalemia Overdose of medication Qualifiers: Encounter type: initial encounter Injury intent: intentional self- harm Qualified Code: T50.902A - Poisoning by unspecified drugs, medicaments and biological substances, intentional self-harm, initial encounter Referrals: GABRIELA CAMARILLO DO (PCP/Family) Departure Forms: Customer Survey General Discharge Information (VIDA MOORE,LUIS MIGUEL) Departure Comments 12/04/16 The patient was signed out to me by Dr. Mcpherson. She is pending crisis evaluation for depression and suicidal ideation. (AMADO BARROW DO)
[2016-12-04 04:14] LABS: ABSOLUTE BASOPHIL COUNT 0 /CUMM (0.0-0.2); ABSOLUTE EOSINOPHIL COUNT 0.1 /CUMM (0.0-0.7); ABSOLUTE GRANULOCYTE CT 2.6 /CUMM (1.4-6.5); ABSOLUTE LYMPH COUNT 2.2 /CUMM (1.2-3.4); ABSOLUTE MONOCYTE COUNT 0.5 /CUMM (0.10-0.60); BASOPHIL % 0.5 % (0.0-2.0); EOSINOPHIL % 2.4 % (0-5); GRANULOCYTE % 47.8 % (42.2-75.2); HEMATOCRIT 39.3 % (37-47); MEAN CORPUSCULAR HGB 30.1 PG (27.0-31.0); MEAN CORPUSCULAR HGB CONC 32.9 G/DL (33.0-37.0); MEAN CORPUSCULAR VOLUME 91.3 FL (81.0-99.0); PLATELET COUNT 160 /CUMM (130-400); RBC DISTRIBUTION WIDTH 14.3 % (11.5-14.5); RED BLOOD CELL CT 4.31 /CUMM (4.20-5.40); WHITE BLOOD CELL COUNT 5.5 /CUMM (4.8-10.8)
--- NOTE | 2016-12-04 14:02 | ED PSYCH CRISIS CONSULTATION ---
Crisis Consult Basic Assessment Date of Consult: 12/04/16 Responsible Person/Accompanied By: with her sister/ her brought her in to Insurance Authorization: Insurance #1: Insurance name: MEDICARE A Phone number: Policy number: [id number] Group number: Authorization number: ED Provider: Patient's ED Provider: AMADO BARROW DO Primary Care Physician: Patient's PCP: GABRIELA CAMARILLO DO PCP's Current Psychiatrist: Dr. Brizuela Chief Complaint: Psychiatric Related Complaint Patient's Quote: "took 15 Risperidal" Present Illness: Pt is a 71 year old female, currently her sister is present during evaluation and offers most of the details presented in this write up due to pts inability to communicate verbally since her most recent stroke, in Aug 2016. Per pt's sister Kirstin, pt has had mild depression since a miscarriage in her 30's, most recently after her cognitive abilities have not returned after having a stroke, pt has become increasingly depressed. her reached out to her sister at 11:30 last night because the pt was threatening to drink lysol. Esther spoke to her sister last night, and again at 3 am her went to sleep waking up to the pt telling him she took 15 of her Risperdal pills. He brought her to ER after that. Pt is able to articulate some of what she is thinking, but it takes her a long time to get the words out. 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 Pt is seen outpatient with Dr. Brizuela and has not had prior si attempts, she may have been inaptient over 25 years ago, but could not recall under what circumstances. Patient's Address: [address] [place] [address] Other Who Do You Live With? Patient and family Family/Informants Interviewed: esther is present at time of evaluation, would like to have her sister get better and not want to feel so hopeless, she is supportive. Allergies - Coded Allergies: Penicillins (RASH 09/17/16) Current Medications - Scheduled Medications Albuterol Sulfate (Ventolin Hfa) 90 MCG HFA.AER.AD 1 PUF INH BID COPD ( Reported) Entered as Reported by DG GERARDO on 09/08/16 1716 Aspirin (Aspirin*) 81 MG TAB.CHEW 1 TAB PO DAILY HEART HEALTH #30 TAB Prescribed by JEAN MARIE ORNELAS on 09/12/16 Budesonide (Pulmicort Flexhaler) 180 MCG AER.POW.BA 2 PUF INH BID COPD #3 ( Reported) Entered as Reported by RICARDA DOE MD on 09/24/16 1147 Citalopram Hydrobromide (Citalopram HBr) 10 MG TABLET 20 MG PO DAILY MENTAL HEALTH (Reported) Entered as Reported by DG GERARDO on 08/12/142120 Gabapentin (Neurontin) 100 MG CAPSULE 1 CAP PO BID ANXIETY/NERVE PAIN ( Reported) Entered as Reported by DG GERARDO on 08/12/142121 Risperidone (Risperdal) 3 MG TABLET 1 TAB PO AT BEDTIME SLEEP AIDE (Reported) Entered as Reported by DG GERARDO on 08/12/142121 Rosuvastatin Calcium (Crestor) 10 MG TABLET 1 TAB PO DAILY CHOLESTEROL ( Reported) Entered as Reported by DG GERARDO on 08/12/142119 Valsartan (Diovan) 160 MG TABLET 1 TAB PO DAILY BLOOD PRESSURE (Reported) Entered as Reported by DG GERARDO on 08/12/142120 Laboratory Results: Laboratory Tests 12/04/16 0953: Urine Opiates Screen < 100.00, Methadone Screen 44, Barbiturate Screen < 60, Ur Phencyclidine Scrn < 6.00, Amphetamines Screen < 100, U Benzodiazepines Scrn < 85, Urine Cocaine Screen < 50, Urine Cannabis Screen < 5.00 12/04/16 0407: Anion Gap 9, Estimated GFR 49 L, BUN/Creatinine Ratio 11.8, Glucose 117 H, Calcium 9.5, Total Bilirubin 0.5, AST 18, ALT 28, Alkaline Phosphatase 71, Total Protein 5.9 L, Albumin 3.2 L, Globulin 2.7, Albumin/Globulin Ratio 1.2, CBC w Diff NO MAN DIFF REQ, RBC 4.31, MCV 91.3, MCH 30.1, RDW 14.3, MPV 8.0, Gran % 47.8, Lymphocytes % 39.6, Monocytes % 9.7 H, Eosinophils % 2.4, Basophils % 0.5 , Absolute Granulocytes 2.6, Absolute Lymphocytes 2.2, Absolute Monocytes 0.5, Absolute Eosinophils 0.1, Absolute Basophils 0, PUBS MCHC 32.9 L, Salicylates < 1.0, Acetaminophen < 10.0 L, Serum Alcohol < 10.0 Past History Past Medical History Neurological: TIA,CVA BLURRY VISION, LEFT SIDED WEAKNESS BASELINE APHASIA EENT: NONE Cardiovascular: HTN, HDL L CAROTID STENOSIS WITH ENDARTERECTOMY Respiratory: COPD, CHRONIC BRONCHITIS Gastrointestinal: NONE Hepatic: NONE Renal: NONE Musculoskeletal: NONE Psychiatric: depression, SCHIZOPHRNIA Endocrine: NONE Blood Disorders: NONE Cancer(s): BREAST BIOPSY LOAN CLOSER/Reproductive: NONE Past Surgical History Surgical History: non-contributory Psychosocial History Strengths/Capabilities: Has supportive family, is looking to learn to manage depression Psychiatric Treatment History Psych Treatment Psychiatric Treatment Yes Inpatient Treatment No Outpatient Treatment Yes Location of Treatment [facility] Reason for Treatment mood disorder Dates of Treatment currently Response to Treatment unknown Diagnosis by History: "depression" Substance Use/Abuse History Drug Use/Abuse Substances Used/Abused No Substance Abuse Treatment Substance Abuse Treatment Past Substance Abuse [place] No Current Mental Status Mental Status Orientation: Place Affect: Sad, Variable Speech: Delayed, Perseveration Neuro-vegetative: Appetite Decreased, Energy Decreased, Helpless, Loss of Interest, Sleep Disturbance Appearance Appearance- Dress/Hygiene: groomed Behaviors Thought Process: Irrational Thought Content: WNL Memory: Impaired Insight: Poor SI/HI Risk Assessment Past Suicidal Ideation/Attempts No Current Suicidal Ideation/Att Yes Past Homicidal Ideation/Att: No Current Homicidal Ideation/Attempts No Degree of Intent: Plan, States Intent Danger To: Self Gravely Disabled: Lack of Insight, Poor Impulse Control Risk Factors: age (under 24/over 65), chronic/serious med cond., high anxiety/ distress, poor impulse control Lethality Ratin PTSD Checklist PTSD Done? patient declined ED Management Sitter: Yes Restraints: No DSM5/PS Stressors/Medical Prob Diagnosis' (DSM 5, Stressors, Medical): Unspecified Depression F32.9 Current GAF: 26 Departure Disposition Psych Medical Clearance Date: 12/04/16 Medically Cleared at: 1330 Time Started: 1330 Time Ended: 1500 Psychiatrist Consulted: Mejia Galloway MD Date Disposition Established: 12/04/16 Time Disposition Established: 1400 Plan for Disposition - Modality: Inpatient Psychiatry Facility: [facility] bed search Follow-up Appt Date: 12/04/16 Follow-Up Appt Time: 140 Rationale for Disposition: Pt is suicidal and made an attempt last night by taking too many medications Type of IP Admission: PEC Referrals GABRIELA CAMARILLO DO (PCP/Family)
[2016-12-04 14:03] VITALS: BP 168/79
== END 2016-12-04 15:55 | disposition short-term general hospital (02) ==
LOC: ERH 03:28
PROVIDERS: Emergency Medicine
DX: F32.9 Major depressive disorder, single episode, unspecified (principal); T50.992A Poisoning by other drugs, medicaments and biological substances, intentional self-harm, initial encounter; E87.6 Hypokalemia
CPT/HCPCS: 80307; 93005; 93010; G0463; G0480